=== PATIENT | male | born 1955 | race Caucasian/White ===

== ENCOUNTER → 2016-07-23 | Outpatient (CLI) | payer MEDICARE, MEDICAID ==
[~2016-07-23] MED LIST: AMLODIPINE BESY1 TAB PO; ANAPROX DS550 MG PO; ATARAX25 MG PO; ATENOLOL; ATIVAN1 MG PO; ATORVASTATIN CA40 M1 PO; AUGMENTIN 875 M1 TAB PO; B12,B-12,B 12500 MCG PO; BACTRIM DS 8001 TA1 PO; BENICAR40 MG PO; CELEXA40 MG PO; CLARITIN10 MG PO; CLINDAMYCIN HC300 MG PO; COMBIVENT1 ARO IH; COZAAR100 MG PO; CYCLOBENZAPRINE10 MG PO; DARVOCET N 1001 TAB PO; DAYPRO600 M1 PO; DELTASONE50 MG PO; DONNATAL1 TAB PO; EXALGO12 MG PO; FIORICET 325 MG1 TAB PO; FLEXERIL10 MG PO; HYDR12.5C PO; HYDR25T PO; HYDROCHLOROTHIA25 M1 PO; HYDROCODONE BIT1 T11 PO; HYDRODIURIL25 MG PO; IBU800 M1 PO; IBUPROFEN600 MG PO; K-DUR 20MEQ20 MEQ PO; K-Dur 20MEQ20 MEQ PO; KEFLEX500 MG PO; KLOR-CON 1010 MEQ PO; LIDODERM 5% PATC1 EA T; LIPITOR10 MG PO; LISINOPRIL HCTZ1 TA1 PO; LISINOPRIL/HCTZ1 TA2 PO; LOPRESSOR25 MG PO; LOPRESSOR50 MG PO; LOSARTAN POTAS100 M1 PO; LOSARTAN POTASS1 TA2 PO; MEDROL DOSEPAK4 MG PO; MORPHINE SULFAT30 M7 PO; MOTRIN800 MG; MOTRIN800 MG PO; MS CONTIN30 MG PO; Motrin,Rufen800 MG PO; NAPROSYN500 MG PO; NEURONTIN300 MG PO; NORCO 325 MG-51 TAB PO; NORFLEX100 MG PO; NORVASC10 MG PO; OMNICEF125 MG/5 M PO; OMNICEF250 MG/5 M PO; OXYCODONE HCL5 MG PO; PEPCID20 MG PO; PERCOCET 325 MG1 TA7 PO; POTASSIUM CHLO20 ME4 PO; POTASSIUM20 MEQ PO; PREDNISONE20 MG PO; PROVENTIL0.09 MG/AC IH; ROBAXIN750 MG PO; ROXICET 325 MG/55 ML PO; ROXICET ORAL SOL5 ML PO; ROXICET PO; SEPTRA DS 800 M1 TAB PO; TESSALON PERLE100 M1 PO; TOPROL XL100 MG PO; TRAMADOL HCL50 MG PO; TYLENOL W/CODEI1 TA2 PO; ULTRAM50 MG PO; VIBRAMYCIN100 MG PO; VICODIN 5/500 505 MG PO; VICODIN 500 MG-1 TAB PO; VICODIN ES 7501 TAB PO; Vicodin 5/500 505 MG PO; ZITHROMAX Z PA250 MG PO; ZOCOR PO; ZOCOR10 MG PO; ZOCOR20 MG PO; ZOCOR5 MG PO
[2016-07-23 14:21] LABS: BUN 15 mg/dl (7-24); CARBON DIOXIDE 33 mmol/L (21-32); CHLORIDE 100 mmol/L (98-107); EST GLOM FILT AFRICAN AMERICAN > 60 ml/min; GLUCOSE 135 mg/dL (65-99); POTASSIUM 2.7 mmol/L (3.5-5.1); SODIUM 140 mmol/L (136-145)
== END | disposition home or self-care (01) ==
LOC: LAB 13:36
PROVIDERS: Internal Medicine
DX: E87.6 Hypokalemia (principal)

== ENCOUNTER 2017-02-07 02:12 | Inpatient (IN) | payer MEDICARE, MEDICAID ==
[~2017-02-07] VITALS: Ht 180.3 cm; Wt 127.5 kg
[2017-02-07 02:18] VITALS: BP 131/72
[2017-02-07 03:16] VITALS: BP 134/92
[2017-02-07 04:00] VITALS: BP 145/95
[2017-02-07 05:55] LABS: BUN 10 mg/dl (7-24); CARBON DIOXIDE 29 mmol/L (21-32); CHLORIDE 104 mmol/L (98-107); CHOLESTEROL 199 mg/dL (<200); EST GLOM FILT AFRICAN AMERICAN > 60 ml/min; FREE T4 1.24 ng/dl (0.76-1.46); GLUCOSE 133 mg/dL (65-99); HDL CHOLESTEROL 28 mg/dl (40-60); LDL CHOLESTEROL 132 mg/dL (9-159); POTASSIUM 3.8 mmol/L (3.5-5.1); SODIUM 139 mmol/L (136-145); TRIGLYCERIDES 194 mg/dl (<150); VLDL CHOLESTEROL 39 mg/dL (6-40)
[2017-02-07 06:01] LABS: THYROID STIM HORMONE (HS) 0.404 uIU/ml (0.358-4.75)
[2017-02-07 06:03] LABS: BASO % 0.2 % (0.0-1.0); EOS # 0.1 10*3/uL (0.0-0.4); EOS % 0.6 % (1.0-4.0); HEMATOCRIT 47.9 % (42.0-52.0); HEMOGLOBIN 16.1 g/dl (14.0-18.0); LYMPH # 0.7 10*3/uL (1.3-4.4); LYMPH % 8.6 % (27.0-41.0); MEAN CELL VOLUME 90.4 fl (80.0-94.0); MEAN CORPUSCULAR HGB 30.4 pg (27.0-31.0); MEAN CORPUSCULAR HGB CONC 33.6 g/dl (33.0-37.0); MEAN PLATELET VOLUME 9.8 fl (9.6-12.3); MONO # 0.4 10*3/uL (0.1-1.0); MONO % 4.1 % (3.0-9.0); NEUT # 7.5 10*3/uL (2.3-7.9); NEUT % 86.2 % (47.0-73.0); PLATELET COUNT AUTOMATED 186 10*3/uL (130-400); RED CELL DISTRI WIDTH 12.7 % (0-14.5); WHITE BLOOD COUNT 8.6 10*3/uL (4.8-10.8)
[2017-02-07 06:39] LABS: HEMOGLOBIN A1c 5.7 % (4.8-5.6)
[2017-02-07 08:00] VITALS: BP 137/77
[2017-02-07] MEDS ORDERED: VICO10300 PO (10:08)
== END 2017-02-07 12:01 | disposition home or self-care (01) | DRG 916 ==
LOC: ED 02:12 → EDHOLD 03:36 → ICCU 03:48
PROVIDERS: Family Medicine
DX: T78.3XXA Angioneurotic edema, initial encounter (principal); I10 Essential (primary) hypertension; E66.09 Other obesity due to excess calories; M15.0 Primary generalized (osteo)arthritis; Z96.651 Presence of right artificial knee joint; F41.9 Anxiety disorder, unspecified; T50.905A Adverse effect of unspecified drugs, medicaments and biological substances, initial encounter; Z88.6 Allergy status to analgesic agent; Z79.899 Other long term (current) drug therapy; Z89.112 Acquired absence of left hand; Z83.3 Family history of diabetes mellitus; Z82.49 Family history of ischemic heart disease and other diseases of the circulatory system; Z80.9 Family history of malignant neoplasm, unspecified; Z88.8 Allergy status to other drugs, medicaments and biological substances; Z68.39 Body mass index [BMI] 39.0-39.9, adult; Y92.89 Other specified places as the place of occurrence of the external cause

== ENCOUNTER 2017-03-09 07:48 | Emergency (ER) | payer MEDICARE, MEDICAID ==
[~2017-03-09] VITALS: Ht 180.3 cm; Wt 124.7 kg
[~2017-03-09 07:48] MED LIST changes: +VICO10300 PO
[2017-03-09] MEDS ORDERED: DELTASONE20 M1 PO (09:33)
[2017-03-09] MEDS ORDERED: CYCLOBENZAPRINE10 MG PO (09:33)
== END 2017-03-09 09:50 | disposition home or self-care (01) ==
LOC: ED 07:48
DX: S16.1XXA Strain of muscle, fascia and tendon at neck level, initial encounter (principal); M13.88 Other specified arthritis, other site; M48.02 Spinal stenosis, cervical region; Z88.8 Allergy status to other drugs, medicaments and biological substances; Z88.6 Allergy status to analgesic agent; Z79.899 Other long term (current) drug therapy; M19.90 Unspecified osteoarthritis, unspecified site; X58.XXXA Exposure to other specified factors, initial encounter; Y93.89 Activity, other specified; Y99.8 Other external cause status; Y92.89 Other specified places as the place of occurrence of the external cause

== ENCOUNTER 2017-05-10 08:03 | Emergency (ER) | payer MEDICARE, MEDICAID ==
[~2017-05-10] VITALS: Ht 154.9 cm; Wt 129.7 kg
[~2017-05-10 08:03] MED LIST changes: +DELTASONE20 M1 PO
[2017-05-10 08:37] LABS: BASO % 0.4 % (0.0-1.0); EOS # 0.5 10*3/uL (0.0-0.4); EOS % 6.4 % (1.0-4.0); HEMOGLOBIN 16.5 g/dl (14.0-18.0); LYMPH # 1.3 10*3/uL (1.3-4.4); LYMPH % 18.8 % (27.0-41.0); MEAN CORPUSCULAR HGB 30.9 pg (27.0-31.0); MEAN CORPUSCULAR HGB CONC 35.1 g/dl (33.0-37.0); MEAN PLATELET VOLUME 9.3 fl (9.6-12.3); MONO # 0.6 10*3/uL (0.1-1.0); MONO % 8.1 % (3.0-9.0); NEUT # 4.7 10*3/uL (2.3-7.9); PLATELET COUNT AUTOMATED 176 10*3/uL (130-400); RED BLOOD COUNT 5.34 10*6/uL (4.50-5.90); RED CELL DISTRI WIDTH 12.3 % (0-14.5); WHITE BLOOD COUNT 7.1 10*3/uL (4.8-10.8)
[2017-05-10 08:52] LABS: ALBUMIN 3.6 gm/dl (3.1-4.5); ALKALINE PHOSPHATASE 86 U/L (45-117); BUN 7 mg/dl (7-24); CHLORIDE 103 mmol/L (98-107); CREATININE 0.98 mg/dL (0.70-1.30); POTASSIUM 3.3 mmol/L (3.5-5.1); SGOT/AST 25 IU/L (3-35); SGPT/ALT 42 U/L (12-78); SODIUM 138 mmol/L (136-145); TOTAL PROTEIN 7.6 gm/dL (6.4-8.2)
[2017-05-10] MEDS ORDERED: CLONIDINE HCL0.1 MG PO (09:55)
[2017-05-10] MEDS ORDERED: VIBRAMYCIN100 MG PO (09:55)
[2017-05-10] MEDS ORDERED: DIPHENHYDRAMINE50 M1 PO (09:58)
== END 2017-05-10 10:29 | disposition home or self-care (01) ==
LOC: ED 08:03
PROVIDERS: Emergency Medicine
DX: J40 Bronchitis, not specified as acute or chronic (principal); I10 Essential (primary) hypertension; M19.90 Unspecified osteoarthritis, unspecified site; F41.9 Anxiety disorder, unspecified; Z88.8 Allergy status to other drugs, medicaments and biological substances; Z79.899 Other long term (current) drug therapy; Z96.651 Presence of right artificial knee joint; Z98.890 Other specified postprocedural states

== ENCOUNTER → 2017-05-15 | Outpatient (CLI) | payer MEDICARE, MEDICAID ==
[~2017-05-15] MED LIST changes: +CLONIDINE HCL0.1 MG PO; +DIPHENHYDRAMINE50 M1 PO
== END | disposition home or self-care (01) ==
LOC: LAB 07:21
DX: E87.6 Hypokalemia (principal)

== ENCOUNTER → 2017-06-03 | Outpatient (CLI) | payer MEDICARE, MEDICAID ==
--- NOTE | 2017-06-03 10:30 | NUR ---
INFORMED CONSENT OBTAINED FOR LEXISCAN NUCLEAR STRESS TEST WITH DR. JOHNSON. RESTING EKG NSR WITH A RESTING HR OF 69 WITH BP OF 182/110. LUNG CLEAR WITH SPO2 OF 97% ON ROOM AIR. PT COMPLETED A 1:00 LEXISCAN PROTOCOL RECEIVING LEXISCAN 0.4 MG IV OVER 10 SECONDS. HAD NO CHEST PAIN BUT DID C/O NAUSEA THAT WAS RELIEVED IN RECOVERY. DEVELOPED T WAVE INVERSIONS IN LEADS II,III, AND AVF. HAD A PEAK HR OF 80 WITH BP OF 144/92. LAST RECOVERY HR OF 77 WITH BP OF 172/110. AWAITING SCANNING IN STABLE CONDITION.
== END ==
LOC: CARD 03:30
DX: R94.31 Abnormal electrocardiogram [ECG] [EKG] (principal)

== ENCOUNTER 2017-07-08 08:35 | Emergency (ER) | payer MEDICARE, MEDICAID ==
[~2017-07-08] VITALS: Ht 180.3 cm; Wt 127.0 kg
[2017-07-08] MEDS ORDERED: NORVASC10 MG PO (08:43)
== END 2017-07-08 11:15 | disposition home or self-care (01) ==
LOC: ED 08:35
DX: S63.92XA Sprain of unspecified part of left wrist and hand, initial encounter (principal); Z98.890 Other specified postprocedural states; Z96.651 Presence of right artificial knee joint; Z79.899 Other long term (current) drug therapy; Z88.8 Allergy status to other drugs, medicaments and biological substances; Z88.5 Allergy status to narcotic agent; Z88.6 Allergy status to analgesic agent; X50.1XXA Overexertion from prolonged static or awkward postures, initial encounter; Y93.89 Activity, other specified; Y92.89 Other specified places as the place of occurrence of the external cause; Y99.9 Unspecified external cause status

== ENCOUNTER → 2017-08-24 | Outpatient (CLI) | payer MEDICARE, MEDICAID | END | disposition home or self-care (01) | LOC: CT 12:46 | DX: M25.531 Pain in right wrist (principal); M25.431 Effusion, right wrist; Z98.1 Arthrodesis status ==

== ENCOUNTER 2017-08-30 11:18 | Emergency (ER) | payer MEDICARE, MEDICAID ==
[~2017-08-30] VITALS: Ht 180.3 cm; Wt 128.8 kg
[2017-08-30] MEDS ORDERED: NAPROSYN500 MG PO (14:10)
== END 2017-08-30 14:10 | disposition home or self-care (01) ==
LOC: ED 11:18
DX: M25.552 Pain in left hip (principal); F41.9 Anxiety disorder, unspecified; I10 Essential (primary) hypertension; Z90.89 Acquired absence of other organs; Z88.8 Allergy status to other drugs, medicaments and biological substances; Z88.5 Allergy status to narcotic agent; Z79.899 Other long term (current) drug therapy; Z96.651 Presence of right artificial knee joint

== ENCOUNTER → 2017-09-24 | Outpatient (CLI) | payer MEDICARE, MEDICAID | END | disposition home or self-care (01) | LOC: MRI 09-14 09:00 | DX: M16.12 Unilateral primary osteoarthritis, left hip (principal); M70.72 Other bursitis of hip, left hip; Z91.81 History of falling ==

== ENCOUNTER 2018-06-15 20:37 | Emergency (ER) | payer MEDICARE, MEDICAID ==
[~2018-06-15] VITALS: Ht 180.3 cm; Wt 117.9 kg
[~2018-06-15 20:37] MED LIST changes: +LYRICA75 M1 PO
== END 2018-06-15 22:50 | disposition home or self-care (01) ==
LOC: ED 20:37
DX: M25.521 Pain in right elbow (principal); Z79.899 Other long term (current) drug therapy; Z88.6 Allergy status to analgesic agent; Z88.8 Allergy status to other drugs, medicaments and biological substances

== ENCOUNTER → 2018-07-08 | Outpatient (CLI) | payer MEDICARE, MEDICAID ==
[~2018-07-08] MED LIST changes: +CEPHALEXIN500 M1 PO; +SEPTDS PO
[2018-07-08 15:18] LABS: BUN 9 mg/dl (7-24); CHLORIDE 103 mmol/L (98-107); CREATININE 0.82 mg/dL (0.70-1.30); SODIUM 142 mmol/L (136-145)
[2018-07-08 15:29] LABS: FREE T4 1.01 ng/dl (0.76-1.46); THYROID STIM HORMONE (HS) 0.667 uIU/ml (0.358-4.75)
== END | disposition home or self-care (01) ==
PROVIDERS: Internal Medicine
DX: I10 Essential (primary) hypertension (principal)

== ENCOUNTER → 2018-07-28 | Outpatient (CLI) | payer MEDICARE, MEDICAID ==
[~2018-07-28] MED LIST changes: -CEPHALEXIN500 M1 PO; -SEPTDS PO
== END | disposition home or self-care (01) ==
LOC: US 14:13
DX: I65.23 Occlusion and stenosis of bilateral carotid arteries (principal)

== ENCOUNTER 2019-01-08 14:41 | Emergency (ER) | payer MEDICARE, MEDICAID ==
[~2019-01-08] VITALS: Ht 180.3 cm; Wt 113.4 kg
[2019-01-08 15:19] LABS: BASO % 0.4 % (0.0-1.0); EOS # 0.2 10*3/uL (0.0-0.4); EOS % 1.9 % (1.0-4.0); HEMATOCRIT 45.4 % (42.0-52.0); HEMOGLOBIN 15.4 g/dl (14.0-18.0); LYMPH # 1.6 10*3/uL (1.3-4.4); MEAN CELL VOLUME 91.2 fl (80.0-94.0); MEAN CORPUSCULAR HGB 30.9 pg (27.0-31.0); MEAN CORPUSCULAR HGB CONC 33.9 g/dl (33.0-37.0); MEAN PLATELET VOLUME 9.7 fl (9.6-12.3); MONO # 0.7 10*3/uL (0.1-1.0); MONO % 9.1 % (3.0-9.0); NEUT # 5.5 10*3/uL (2.3-7.9); NEUT % 68.5 % (47.0-73.0); PLATELET COUNT AUTOMATED 173 10*3/uL (130-400); RED BLOOD COUNT 4.98 10*6/uL (4.50-5.90); RED CELL DISTRI WIDTH 12.5 % (0-14.5)
[2019-01-08 15:31] LABS: ACT PARTIAL THROMBO TIME 24.6 SECONDS (20.0-32.1)
[2019-01-08 15:32] LABS: ALBUMIN 3.3 gm/dl (3.1-4.5); ALKALINE PHOSPHATASE 66 U/L (45-117); BUN 13 mg/dl (7-24); CHLORIDE 106 mmol/L (98-107); POTASSIUM 3.3 mmol/L (3.5-5.1); SGOT/AST 12 IU/L (3-35); SGPT/ALT 20 U/L (12-78); SODIUM 142 mmol/L (136-145); TOTAL PROTEIN 6.7 gm/dL (6.4-8.2)
== END 2019-01-08 16:53 | disposition home or self-care (01) ==
LOC: ED 14:41
PROVIDERS: Nurse Practitioner Family
DX: L50.9 Urticaria, unspecified (principal); M96.830 Postprocedural hemorrhage of a musculoskeletal structure following a musculoskeletal system procedure; M25.521 Pain in right elbow; R53.1 Weakness; R11.0 Nausea; I10 Essential (primary) hypertension; E66.9 Obesity, unspecified; M19.90 Unspecified osteoarthritis, unspecified site; R79.1 Abnormal coagulation profile; Z48.01 Encounter for change or removal of surgical wound dressing; Z88.8 Allergy status to other drugs, medicaments and biological substances; Z88.6 Allergy status to analgesic agent; Z79.899 Other long term (current) drug therapy; Z98.890 Other specified postprocedural states

== ENCOUNTER 2019-01-28 18:27 | Emergency (ER) | payer MEDICARE, MEDICAID ==
[~2019-01-28] VITALS: Ht 180.3 cm; Wt 119.7 kg
--- NOTE | ~2019-01-28 | EKG ---
[place], [place] ELECTROCARDIOGRAM REPORT NAME: LUCY AHUJA UNIT #: [id number] ROOM: DOCTOR: EPIPHANY DRAFT REPORT BIRTHDATE: [birth year] [facility] Test Date: 2019-01-28 Test Time: 20:13:38 Pat Name: LUCY AHUJA Department: Room: Gender: Bilingual Office Assistant: : 1955 Requested By: LILI MAHMOOD DNP Order Number: [id number] Reading MD: Dawn Mckee Measurements Intervals [place] Rate: 81 P: -18 ND: 228 QRS: -28 QRSD: 106 T: QT: 443 QTc: 515 Interpretive Statements Sinus rhythm Prolonged ND interval Abnormal R-wave progression, early transition LVH with secondary repolarization abnormality Prolonged QT interval Electronically Signed On 01-30-2019 8:57:22 PDT by Dawn Mckee CM:EKGRPT:ELECTROCARDIOGRAM REPORT [id number] LILI MAHMOOD DNP EPIPHANY DRAFT REPORT LILI MAHMOOD DNP
[2019-01-28 19:34] LABS: BASO % 0.2 % (0.0-1.0); EOS # 0.1 10*3/uL (0.0-0.4); EOS % 0.7 % (1.0-4.0); HEMATOCRIT 42.6 % (42.0-52.0); HEMOGLOBIN 14.7 g/dl (14.0-18.0); LYMPH # 1.8 10*3/uL (1.3-4.4); MEAN CELL VOLUME 90.6 fl (80.0-94.0); MEAN CORPUSCULAR HGB 31.3 pg (27.0-31.0); MEAN CORPUSCULAR HGB CONC 34.5 g/dl (33.0-37.0); MEAN PLATELET VOLUME 9.9 fl (9.6-12.3); MONO # 0.7 10*3/uL (0.1-1.0); MONO % 8.6 % (3.0-9.0); NEUT # 5.8 10*3/uL (2.3-7.9); NEUT % 69.3 % (47.0-73.0); PLATELET COUNT AUTOMATED 175 10*3/uL (130-400); RED CELL DISTRI WIDTH 12.5 % (0-14.5); WHITE BLOOD COUNT 8.4 10*3/uL (4.8-10.8)
[2019-01-28 19:52] LABS: ALBUMIN 3.4 gm/dl (3.1-4.5); ALKALINE PHOSPHATASE 82 U/L (45-117); BUN 9 mg/dl (7-24); CHLORIDE 105 mmol/L (98-107); CREATININE 0.92 mg/dL (0.70-1.30); POTASSIUM 2.8 mmol/L (3.5-5.1); SGOT/AST 10 IU/L (3-35); SGPT/ALT 12 U/L (12-78); SODIUM 137 mmol/L (136-145); TOTAL PROTEIN 6.7 gm/dL (6.4-8.2)
[2019-01-28] MEDS ORDERED: CEPHALEXIN500 M1 PO (21:33)
[2019-01-28] MEDS ORDERED: SEPTDS PO (21:33)
== END 2019-01-28 21:40 | disposition home or self-care (01) ==
LOC: ED 18:27
PROVIDERS: Nurse Practitioner Family
DX: L03.113 Cellulitis of right upper limb (principal); R11.0 Nausea; I10 Essential (primary) hypertension; E78.5 Hyperlipidemia, unspecified; Z89.112 Acquired absence of left hand; Z88.6 Allergy status to analgesic agent; Z88.8 Allergy status to other drugs, medicaments and biological substances; Z79.899 Other long term (current) drug therapy

== ENCOUNTER 2019-05-20 16:54 | Emergency (ER) | payer OTHER, MEDICAID ==
[~2019-05-20] VITALS: Ht 180.3 cm; Wt 113.4 kg
[~2019-05-20 16:54] MED LIST changes: +CEPHALEXIN500 M1 PO; +SEPTDS PO
== END 2019-05-20 19:18 | disposition home or self-care (01) ==
LOC: ED 16:54
DX: R60.0 Localized edema (principal); M25.561 Pain in right knee; M19.90 Unspecified osteoarthritis, unspecified site; E66.9 Obesity, unspecified; I10 Essential (primary) hypertension; Z88.8 Allergy status to other drugs, medicaments and biological substances; Z88.6 Allergy status to analgesic agent; Z79.899 Other long term (current) drug therapy; W19.XXXA Unspecified fall, initial encounter; Y93.89 Activity, other specified; Y92.89 Other specified places as the place of occurrence of the external cause; Y99.8 Other external cause status

== ENCOUNTER 2019-06-14 10:46 | Emergency (ER) | payer OTHER, MEDICAID ==
[~2019-06-14] VITALS: Wt 115.2 kg
--- NOTE | ~2019-06-14 | EKG ---
[place], [place] ELECTROCARDIOGRAM REPORT NAME: LUCY AHUJA UNIT #: [id number] ROOM: DOCTOR: NAZ DRAFT REPORT BIRTHDATE: [birth year] [facility] Test Date: 2019-06-14 Test Time: 10:55:50 Pat Name: LUCY AHUJA Department: Room: Gender: Time Study Observer: : 1955 Requested By: ALVERTO GOODEN Order Number: [id number] Reading MD: Measurements Intervals [place] Rate: 79 P: 14 MD: 206 QRS: -25 QRSD: 111 T: QT: 595 QTc: 683 Interpretive Statements Sinus rhythm Left atrial enlargement Abnormal R-wave progression, early transition LVH with IVCD and secondary repol abnrm Prolonged QT interval Compared to ECG 01/28/2019 20:13:38 Atrial abnormality now present Intraventricular conduction delay now present First degree AV block no longer present CM:EKGRPT:ELECTROCARDIOGRAM REPORT [id number] ALVERTO CHILDS DRAFT REPORT ALVERTO GOODEN MD
[2019-06-14 11:10] LABS: BASO % 0.7 % (0.0-1.0); EOS # 0.1 10*3/uL (0.0-0.4); EOS % 1.9 % (1.0-4.0); HEMATOCRIT 47.4 % (42.0-52.0); HEMOGLOBIN 16.4 g/dl (14.0-18.0); LYMPH % 17.3 % (27.0-41.0); MEAN CELL VOLUME 90.6 fl (80.0-94.0); MEAN CORPUSCULAR HGB 31.4 pg (27.0-31.0); MEAN CORPUSCULAR HGB CONC 34.6 g/dl (33.0-37.0); MEAN PLATELET VOLUME 9.5 fl (9.6-12.3); MONO # 0.4 10*3/uL (0.1-1.0); MONO % 6.9 % (3.0-9.0); NEUT # 4.3 10*3/uL (2.3-7.9); NEUT % 72.9 % (47.0-73.0); PLATELET COUNT AUTOMATED 165 10*3/uL (130-400); RED BLOOD COUNT 5.23 10*6/uL (4.50-5.90); RED CELL DISTRI WIDTH 12.4 % (0-14.5); WHITE BLOOD COUNT 5.9 10*3/uL (4.8-10.8)
[2019-06-14 11:20] LABS: ACT PARTIAL THROMBO TIME 24.3 SECONDS (20.0-32.1)
[2019-06-14 11:28] LABS: ETHYL ALCOHOL < 3.0 mg/dl (<3)
[2019-06-14 11:31] LABS: ALBUMIN 3.8 gm/dl (3.1-4.5); ALKALINE PHOSPHATASE 81 U/L (45-117); BUN 12 mg/dl (7-24); CHLORIDE 107 mmol/L (98-107); CREATININE 1.04 mg/dL (0.70-1.30); POTASSIUM 3.5 mmol/L (3.5-5.1); SGOT/AST 21 IU/L (3-35); SGPT/ALT 30 U/L (12-78); SODIUM 139 mmol/L (136-145); TOTAL PROTEIN 7.5 gm/dL (6.4-8.2)
[2019-06-14 11:33] LABS: TROPONIN I < 0.015 ng/ml (<0.045)
== END 2019-06-14 15:21 | disposition home or self-care (01) ==
LOC: ED 10:46
PROVIDERS: Emergency Medicine
DX: T58.91XA Toxic effect of carbon monoxide from unspecified source, accidental (unintentional), initial encounter (principal); R11.2 Nausea with vomiting, unspecified; R51 Headache; R79.1 Abnormal coagulation profile; I10 Essential (primary) hypertension; M19.90 Unspecified osteoarthritis, unspecified site; E66.9 Obesity, unspecified; Z88.8 Allergy status to other drugs, medicaments and biological substances; Z88.6 Allergy status to analgesic agent; Z79.899 Other long term (current) drug therapy; Y92.89 Other specified places as the place of occurrence of the external cause

== ENCOUNTER 2019-08-01 13:14 | Emergency (ER) | payer OTHER, MEDICAID ==
[~2019-08-01] VITALS: Ht 180.3 cm; Wt 115.7 kg
== END 2019-08-01 14:00 | disposition home or self-care (01) ==
LOC: ED 13:14
DX: S46.301A Unspecified injury of muscle, fascia and tendon of triceps, right arm, initial encounter (principal); S29.001A Unspecified injury of muscle and tendon of front wall of thorax, initial encounter; M25.521 Pain in right elbow; I10 Essential (primary) hypertension; M19.90 Unspecified osteoarthritis, unspecified site; E78.5 Hyperlipidemia, unspecified; Z88.6 Allergy status to analgesic agent; Z88.8 Allergy status to other drugs, medicaments and biological substances; Z79.899 Other long term (current) drug therapy; X58.XXXA Exposure to other specified factors, initial encounter; Y93.89 Activity, other specified; Y92.89 Other specified places as the place of occurrence of the external cause; Y99.8 Other external cause status

== ENCOUNTER 2020-02-20 22:49 | Emergency (ER) | payer OTHER, MEDICAID ==
[~2020-02-20] VITALS: Ht 180.3 cm; Wt 120.2 kg
[2020-02-21] MEDS ORDERED: ULTRAM50 MG PO (02:01)
== END 2020-02-21 02:21 | disposition home or self-care (01) ==
LOC: ED 22:49
DX: S42.92XA Fracture of left shoulder girdle, part unspecified, initial encounter for closed fracture (principal); S80.12XA Contusion of left lower leg, initial encounter; S80.812A Abrasion, left lower leg, initial encounter; Z88.8 Allergy status to other drugs, medicaments and biological substances; Z88.6 Allergy status to analgesic agent; Z79.899 Other long term (current) drug therapy; W01.0XXA Fall on same level from slipping, tripping and stumbling without subsequent striking against object, initial encounter; Y93.89 Activity, other specified; Y92.89 Other specified places as the place of occurrence of the external cause; Y99.8 Other external cause status

== ENCOUNTER 2020-02-22 19:33 | Inpatient (IN) | payer OTHER, MEDICAID ==
[~2020-02-22] VITALS: Ht 180.3 cm; Wt 126.6 kg
[2020-02-22 19:37] VITALS: BP 137/77
--- NOTE | 2020-02-22 21:38 | NUR ---
THE PATIENT IS WEARING A SLING TO THE LEFT ARM FROM A LT [employer] FX DX YESTERDAY.
[2020-02-22 22:20] VITALS: BP 152/82
--- NOTE | 2020-02-22 22:20 | NUR ---
Time: 2219 A 64 year old male admitted to 5E under services of DR. ALEX ANDERSEN,JAGDEEP. Pt. arrived via wheel chair from ER. Chief complaint: had injury 02/21/20 and fracture RCI, SHOULDER FX. WAS HER IN ER LAST NIGHT AND THEN CAME BACK TODAY. XU DOMINGO
--- NOTE | 2020-02-22 22:34 | NUR ---
DR. ALVARADO WAS HERE ON UNIT AND SAW PATIENT ORDER RECEIVED.
--- NOTE | 2020-02-22 23:30 | NUR ---
IV IN RIGHT AC EDEMA. Hep Lock discontinued. Site symptomatic. Pressure applied. Sterile dressing applied. XU DOMINGO IV started right wrist with #22 angiocath after 1st attempts. The IV site was prepped with Chloraprep. Heparin lock attached. Procedure performed according to [facility] policy & procedure. XU DOMINGO
--- NOTE | 2020-02-22 23:40 | NUR ---
DILAUDID GIVEN PER ORDER FOR PAIN AND BENADRYL TO HELP PREVENT ALLERGIC REACTION. PAIN RATED BEYOND 10 ON 0-10 SCALE.
[2020-02-22 23:57] LABS: BASO % 0.4 % (0.0-1.0); EOS # 0.2 10*3/uL (0.0-0.4); EOS % 2.3 % (1.0-4.0); HEMATOCRIT 44.7 % (42.0-52.0); LYMPH # 1.4 10*3/uL (1.3-4.4); LYMPH % 19.9 % (27.0-41.0); MEAN CELL VOLUME 91.2 fl (80.0-94.0); MEAN CORPUSCULAR HGB 30.6 pg (27.0-31.0); MEAN CORPUSCULAR HGB CONC 33.6 g/dl (33.0-37.0); MEAN PLATELET VOLUME 9.7 fl (9.6-12.3); MONO # 0.9 10*3/uL (0.1-1.0); NEUT # 4.7 10*3/uL (2.3-7.9); NEUT % 65.1 % (47.0-73.0); PLATELET COUNT AUTOMATED 158 10*3/uL (130-400); RED CELL DISTRI WIDTH 12.5 % (0-14.5); WHITE BLOOD COUNT 7.2 10*3/uL (4.8-10.8)
[2020-02-23] VITALS: BP 152/82
[2020-02-23 00:14] LABS: ALBUMIN 3.4 gm/dl (3.1-4.5); ALKALINE PHOSPHATASE 63 U/L (45-117); BUN 15 mg/dl (7-24); CHLORIDE 106 mmol/L (98-107); CREATININE 0.95 mg/dL (0.70-1.30); POTASSIUM 3.1 mmol/L (3.5-5.1); SGOT/AST 14 IU/L (3-35); SGPT/ALT 26 U/L (12-78); SODIUM 138 mmol/L (136-145); TOTAL PROTEIN 7.1 gm/dL (6.4-8.2)
[2020-02-23] MEDS ORDERED: LOSARTAN POTASS25 M1 PO (00:29)
--- NOTE | 2020-02-23 00:40 | NUR ---
DILAUDID AND BENADRYL EFFECTIVE FOR PAIN. PATIENT RESTING WELLS.
--- NOTE | 2020-02-23 04:32 | NUR ---
24 HR chart check completed.
--- NOTE | 2020-02-23 07:01 | NUR ---
CALLED AND SPOKE WITH DR. ALVARADO ABOUT PAIN MEDICATION. PATIENT REFUSED TO TAKE TYLENOL SAID "I'M NOT SURE IF I CAN TAKE THAT BUT I CAN TAKE IBUPROFEN" NOTIFIED DR. ALVARADO ABOUT THAT. ORDERS TO BE RECEIVED.
--- NOTE | 2020-02-23 07:39 | NUR ---
MOTRIN GIVEN PER ORDER FOR PAIN RIGHT SHOULDER AND LEFT ARM RATED "10" SEE MAR.
[2020-02-23 08:00] VITALS: BP 154/77
--- NOTE | 2020-02-23 08:30 | NUR ---
MOTRIN EFFECTIVE. PATIENT RATES PAIN A 4/10 AND TOLERABLE. PATIENT REPOSITIONED FOR COMFORT. PILLOWS PLACED UNDER ARMS AND ICE PACKS APPLIED.WILL CONTINUE TO MONITOR. CALL LIGHT WITHIN REACH.
--- NOTE | 2020-02-23 09:00 | NUR ---
Revenue Coordinator in to talk to patient. Patient states lives at home alone with his family checking in on him. There are 0 steps in the home. There are 2 outside steps. Physician: Dr. Aditya Anderson [facility]: [facility] Home health services: none Patient's level of ADLs: moderate assistance Patient has working utilities: yes DME: none Follow-up physician's appointment after d/c: he prefers to make his own follow up appt after discharge Does patient want to access PORTAL?: no Discharge plan discussed with patient. He lives at home alone with his family checking in on him. He is normally independent in his ADLs and ambulation. He fell and hit both shoulders, one on the truck and one on the engine block. He has limited ROM with his right shoulder and his unable to move his left arm. Discussed short term rehab and home health care services and he refuses. He states he doesn't want people in his home. Discussed discharge planning with Dr. Anderson. Dr. Anderson says patient will need assisted living. Informed CM is unable to place in assisted living as that is private pay. Discussed possibility of surgery and patient to be transferred to a higher level of care. Patient states he would be willing to do OP therapy if and when needed. Discharge plan undecided at this time. He states his ex-girlfriend can provide transportation on discharge. Awaiting Dr. Anderson to [facility]
[2020-02-23 12:00] VITALS: BP 174/99
[2020-02-23 16:00] VITALS: BP 167/82
--- NOTE | 2020-02-23 18:33 | NUR ---
DR. JOHNSON NOTIFIED THAT [facility] CANNOT ACCEPT THE PATIENT A MEDICAL CASE. NURSING DELINQUENCY PREVENTION OFFICER SPOKE TO ORTHOPEDIC SURGEON ROUTE INSPECTOR AND HE RECOMMENDED THAT PATIENT CAN BE DISCHARGED AND FOLLOW UP ON THURSDAY WITH DR. ROSAS. PATIENT IS UNABLE TO DO ADL'S INDEPENDENTLY AND HAS AN INADEQUATE SUPPORT SYSTEM AT HOME. PER DR. JOHNSON, PATIENT WILL REMAIN HOSPITALIZED AND HE WILL SEE HIM TOMORROW.
[2020-02-23 20:00] VITALS: BP 169/98
--- NOTE | 2020-02-23 20:15 | NUR ---
SPOKE WITH DR. ALVARADO ABOUT PATIENT HOME MEDS.
--- NOTE | 2020-02-23 22:15 | NUR ---
CALLED DR. ALVARADO ABOUT SOMETHING TO HELP PATIENT SLEEP AND PAIN MEDICATION. ORDER RECEIVED.
--- NOTE | 2020-02-23 23:02 | NUR ---
MOTRIN GIVEN PER ORDER FOR PAIN IN BOTH UPPER SHOULDERS RATED "10" AND BENADRYL TO HELP PATIENT SLEEP. SEE MAR. PILLOWS PLACED TO HELP SUPPORT ARMS/COMFORT MEASURE.
[2020-02-24] VITALS: BP 167/95
--- NOTE | 2020-02-24 | NUR ---
MOTRIN AND BENADRYL BOTH EFFECTIVE.
--- NOTE | 2020-02-24 04:00 | NUR ---
SLEEPING. RESP. EASY AND REG. NO ACUTE DISTRESS NOTED.
--- NOTE | 2020-02-24 04:16 | NUR ---
24 HR chart check completed.
--- NOTE | 2020-02-24 05:12 | NUR ---
UP TO BATHROOM WITH ASSISTANCE PATIENT UNABLE TO PERFORM ADL'S D/T INJURIES TO BOTH ARMS. PT. RETURN TO BED AND POSITIONED FOR COMFORT WITH PILLOW SUPPORTS AND SLING.
[2020-02-24 05:30] VITALS: BP 133/78
[2020-02-24 08:00] VITALS: BP 153/94
--- NOTE | 2020-02-24 09:00 | NUR ---
CARLOS in to see patient. He is currently on the phone with Dr. Castro' office in [place] for an OP orthopedics appt. The earliest the office would be able to get him in to be seen would be , March 01, at 1045 or in [place] on Thursday. Patient is concerned as he is not able to drive. He states "I can't even wipe my own butt." Awaiting Dr. Anderson to round. Discharge plan at this time undecided.
[2020-02-24 12:00] VITALS: BP 159/86
[2020-02-24 13:47] LABS: BASO % 0.7 % (0.0-1.0); EOS # 0.3 10*3/uL (0.0-0.4); EOS % 6.4 % (1.0-4.0); HEMATOCRIT 43.8 % (42.0-52.0); LYMPH % 21.6 % (27.0-41.0); MEAN CELL VOLUME 90.9 fl (80.0-94.0); MEAN CORPUSCULAR HGB 30.3 pg (27.0-31.0); MEAN CORPUSCULAR HGB CONC 33.3 g/dl (33.0-37.0); MEAN PLATELET VOLUME 10.2 fl (9.6-12.3); MONO # 0.4 10*3/uL (0.1-1.0); MONO % 8.7 % (3.0-9.0); NEUT # 2.8 10*3/uL (2.3-7.9); NEUT % 62.4 % (47.0-73.0); PLATELET COUNT AUTOMATED 163 10*3/uL (130-400); RED BLOOD COUNT 4.82 10*6/uL (4.50-5.90); RED CELL DISTRI WIDTH 12.1 % (0-14.5); WHITE BLOOD COUNT 4.5 10*3/uL (4.8-10.8)
[2020-02-24 13:58] LABS: BUN 18 mg/dl (7-24); CHLORIDE 108 mmol/L (98-107); CREATININE 0.91 mg/dL (0.70-1.30); POTASSIUM 3.5 mmol/L (3.5-5.1); SODIUM 140 mmol/L (136-145)
[2020-02-24 16:00] VITALS: BP 136/79
--- NOTE | 2020-02-24 17:15 | NUR ---
PATIENT STATES THAT TORODOL WAS EFFECTIVE. AND PATIENT WAS ABLE TO EAT DINNER AND MOVE EASIER.
--- NOTE | 2020-02-24 17:45 | NUR ---
DR. JOHNSON IN TO SEE PATIENT AND DISCUSS PATIENT CARE. ORDERS RECEIVED TO HAVE TORADOL FOR PAIN MANAGEMENT AND OTHER OPTIONS WILL BE ADDED IF PATIENT IS STILL IN PAIN. PLAN IS TO KEEP PATIENT UNTIL THURSDAY WHEN NEW ORTHOPEDIC DOCTOR STARTS AND WILL BE CONSULTED AT THAT TIME. PATIENT AGREES WITH THIS PLAN OF CARE.
--- NOTE | 2020-02-24 19:42 | NUR ---
24 HR chart check completed.
[2020-02-24 20:00] VITALS: BP 160/89
[2020-02-25] VITALS: BP 153/84
--- NOTE | 2020-02-25 00:38 | NUR ---
C/O PAIN LEFT AND RIGHT SHOULDER LEFT WORSE THAN RIGHT RATED "10+" TORADOL GIVEN PER ORDER FOR PAIN. RE-ADJUSTED PILLOWS FOR COMFORT.
--- NOTE | 2020-02-25 02:04 | NUR ---
CALLED DR. JOHNSON AND NOTIFIED HIM THAT PATIENT C/O "BAD HEADACHE AFTER TAKING TORADOL" RATED IT "10" "LIKE MIRGAINE BAD". ORDER RECEIVED FOR IBUPROFEN. PT. UP TO BATHROOM WITH ASSISTANCE AND BACK TO BED, POSITIONED FOR COMFORT.
--- NOTE | 2020-02-25 03:00 | NUR ---
PT C/O HEADACHE, RATES PAIN 5 ON PAIN SCALE 0-10. MEDICATED WITH MOTRIN PO PER ORDER, SEE EMAR. CALL LIGHT IN REACH.
--- NOTE | 2020-02-25 04:00 | NUR ---
MOTRIN EFFECTIVE FOR HEADACHE PAIN.
--- NOTE | 2020-02-25 05:05 | NUR ---
UP TO BATHROOM WITH ASSISTANCE VOIDED AND THEN BACK TO BED AND ADJUSTED PILLOWS FOR COMFORT.
[2020-02-25 08:00] VITALS: BP 164/96
[2020-02-25 12:00] VITALS: BP 132/89
[2020-02-25 16:00] VITALS: BP 132/83
[2020-02-25 20:00] VITALS: BP 156/94
--- NOTE | 2020-02-25 20:22 | NUR ---
1X SOLU MEDROL AND GIVEN PER BACK RASH; IV DILAUDID GIVEN PER REPORT OF PAIN. WILL MONITOR.
--- NOTE | 2020-02-25 21:00 | NUR ---
PATIENT STATES DILAUDID EFFECTIVE FOR PAIN. FLAT SHEET APPLIED UNDERNEATH SLING R/T REDNESS UNDER STRAP. PT STATES RELIEF.
[2020-02-26] VITALS: BP 157/80
[2020-02-26 08:00] VITALS: BP 150/98
--- NOTE | 2020-02-26 08:00 | NUR ---
IN TO ROOM, PATIENT AWAKE, ALERT AND ORIENTED SITTING UP IN BED. PT C/O SHOULDER PAIN, EDUCATION PROVIDED ON TIMING OF PRN MEDICATIONS. NO OTHER STATED COMPLAINTS. RESPIRATIONS ARE EASY AND REGULAR ON ROOM AIR. NO SOB OR DISTRESS NOTED. PT IS ABLE TO REPOSITION SELF IN BED AND IS ENCOURAGED TO DO SO. BED IN LOWEST LOCKED POSITION AND CALL LIGHT WITHIN REACH.
--- NOTE | 2020-02-26 10:00 | NUR ---
PT GAVE PA 6 DOLLARS AND A DEBIT CARD IN AN ENVELOPE TO TAKE TO ER TO GIVE TO A FRIEND NAMED WINTER.
--- NOTE | 2020-02-26 10:08 | NUR ---
PT COMPAINS OF LEFT SHOULDER PAIN RATED AT AN 8. PRN DILAUDID ADMINISTERED AT THIS TIME. WILL MONITOR FOR EFFECTIVENESS.
--- NOTE | 2020-02-26 11:08 | NUR ---
PT STATES DILAUDID WAS EFFECTIVE.
--- NOTE | 2020-02-26 11:30 | NUR ---
PT COMPLAIN OF LEFT SHOULDER PAIN RATED AT AN 8. PRN DILAUDID ADMINISTERED AT THIS TIME. WILL MONITOR FOR EFFECTIVENESS.
[2020-02-26 12:00] VITALS: BP 124/99
--- NOTE | 2020-02-26 15:53 | NUR ---
PT COMPLAINS OF SHOULDER PAIN RATED AT A 9. PRN DILAUDID ADMINISTERED AT THIS TIME. WILL MONITOR FOR EFFECTIVENESS.
[2020-02-26 16:00] VITALS: BP 126/87
[2020-02-26 20:00] VITALS: BP 149/89
--- NOTE | 2020-02-26 20:27 | NUR ---
1X VISTARIL GIVEN PER ORDER
--- NOTE | 2020-02-26 20:43 | NUR ---
PATIENT TEACHING PROVIDED AT THIS TIME R/T HUMERAL FRACTURE
--- NOTE | 2020-02-26 22:31 | NUR ---
PRN IV DILAUDID GIVEN PER PT C/O 04/14 PAIN TO LT SHOULDER & RESTORIL PER REQUEST FOR INSOMNIA
--- NOTE | 2020-02-26 23:30 | NUR ---
PRN MEDICATIONS EFFECTIVE; PT IS RESTING ON ROOM AIR, EASY REGULAR RESPIRATIONS
[2020-02-27] VITALS: BP 154/90
[2020-02-27 06:28] LABS: BASO % 0.4 % (0.0-1.0); EOS # 0.3 10*3/uL (0.0-0.4); EOS % 5.3 % (1.0-4.0); HEMATOCRIT 43.5 % (42.0-52.0); LYMPH # 1.6 10*3/uL (1.3-4.4); LYMPH % 30.8 % (27.0-41.0); MEAN CELL VOLUME 90.6 fl (80.0-94.0); MEAN CORPUSCULAR HGB 30.4 pg (27.0-31.0); MEAN CORPUSCULAR HGB CONC 33.6 g/dl (33.0-37.0); MEAN PLATELET VOLUME 9.6 fl (9.6-12.3); MONO # 0.5 10*3/uL (0.1-1.0); MONO % 8.5 % (3.0-9.0); NEUT # 2.9 10*3/uL (2.3-7.9); NEUT % 54.8 % (47.0-73.0); PLATELET COUNT AUTOMATED 194 10*3/uL (130-400); RED CELL DISTRI WIDTH 12.5 % (0-14.5); WHITE BLOOD COUNT 5.3 10*3/uL (4.8-10.8)
[2020-02-27 06:32] LABS: CREATININE 0.81 mg/dL (0.70-1.30)
[2020-02-27 08:00] VITALS: BP 153/88
--- NOTE | 2020-02-27 08:00 | NUR ---
PATIENT AWAKE, ALERT AND ORIENTED SITTING UP IN BED. PT C/O SHOULDER PAIN AT THIS TIME. NO OTHER STATED COMPLAINTS. RESPIRATIONS ARE EASY AND REGULAR. ROOM AIR. NO SOB NOTED. PT IS ABLE TO REPOSITION SELF IN BED AND IS ENCOURAGED TO DO SO. BED IN LOWEST LOCKED POSITION AND CALL LIGHT WITHIN REACH. WILL CONTINUE TO MONITOR.
--- NOTE | 2020-02-27 08:27 | NUR ---
PT COMPLAINS OF SHOULDER PAIN RATED AT A 9. PRN DILAUDID ADMINISTERED AT THIS TIME. WILL MONITOR FOR EFFECTIVENESS.
--- NOTE | 2020-02-27 08:48 | NUR ---
Spoke with Dr. Anderson regarding ortho consult. New orders received.
--- NOTE | 2020-02-27 09:27 | NUR ---
PT STATES DILAUDID WAS EFFECTIVE.
--- NOTE | 2020-02-27 09:30 | NUR ---
CM in to see patient. Discussed ortho consult. No new needs or request at this time. Discharge plan undecided at this time.
[2020-02-27 12:00] VITALS: BP 137/69
--- NOTE | 2020-02-27 14:02 | NUR ---
PT COMPLAINS OF SHOULDER PAIN RATED AT A 9. PRN DILAUDID ADMINISTERED. WILL MONITOR FOR EFFECTIVENESS.
[2020-02-27] MEDS ORDERED: ACETAMINOPHEN325 M2 PO (14:39)
[2020-02-27] MEDS ORDERED: PANTOPRAZOLE SO40 MG PO (14:39)
--- NOTE | 2020-02-27 15:00 | NUR ---
IN TO ROOM. PATIENT ASLEEP IN BED. PRN DILAUDID CONSIDERED EFFECTIVE. RESPIRATIONS ARE EASY AND REGULAR. NO SOB OR DISTRESS NOTED. BED IN LOWEST LOCKED POSITION AND CALL LIGHT WITHIN REACH. WILL CONTINUE TO MONITOR.
--- NOTE | 2020-02-27 15:51 | NUR ---
CM in to see patient. Informed Dr. Anderson stated patient could be discharged to home. Discussed short term rehab and home health care services and he declines. He states he doesn't want anyone in his house. He states his house is stocked with food and he can use his propane stove to cook on. He has solar panels and is unable to run a microwave. He has an appt with Dr. Castro, orthopedist, at [place] on . He wants to follow up with him for a second opinion. His ex-girlfriend will provide transportation on discharge today and to his doctor's appt on . He has a grabber at home that he is going to use to be able to wipe with.
--- NOTE | 2020-02-27 16:01 | NUR ---
Called to patient's room. He is requesting [facility]. He wants to make sure they can get him to his appt on . Will notify protective services social worker. He'll need a precert.
[2020-02-27] MEDS ORDERED: ASPIRIN LITE C325 MG PO (16:03)
--- NOTE | 2020-02-27 19:00 | NUR ---
ASSUMED CARE FOR THIS PT AT THIS TIME. PT C/O LT SHOULDER PAIN. PT TEACHING GIVEN ON PRN PAIN MED TIMES. BED ALARM ON W/CALL LIGHT IN REACH.
[2020-02-27 20:00] VITALS: BP 134/92
--- NOTE | 2020-02-27 20:03 | NUR ---
PT C/O SHARP PAIN TO LEFT SHOULDER 9/10 AND ITCHING TO BACK. RASH REMAINS TO UPPER BACK. PT MEDICATED W/DILAUDID IVP. LT ARM SLING INTACT. BED ALARM ON W/CALL LIGHT IN REACH.
--- NOTE | 2020-02-27 20:33 | NUR ---
DR. ALVARADO NOTIFIED OF PT'S RASH ON BACK AND PT COMPLAINING OF ITCHINESS. TO ORDER BENADRYL.
--- NOTE | 2020-02-27 21:00 | NUR ---
PT STATES DILAUDID EFFECTIVE FOR PAIN RELIEF.
[2020-02-28] VITALS: BP 157/88
--- NOTE | 2020-02-28 05:28 | NUR ---
PT MEDICATED W/DILAUDID FOR C/O LEFT SHOULDER PAIN 03/15. ICE PACK GIVEN TO PT AT THIS TIME WELL. SLING INTACT TO LEFT ARM. CALL LIGHT IN REACH W/BED ALARM ON.
[2020-02-28 08:00] VITALS: BP 174/80; BP 182/98
--- NOTE | 2020-02-28 08:04 | NUR ---
Patient requesting snf at [facility]; Faxed face sheet to check for out of network benefits.
--- NOTE | 2020-02-28 08:26 | NUR ---
PT RESTING IN BED. NO DISTRESS NOTED. WILL MONITOR
--- NOTE | 2020-02-28 08:31 | NUR ---
Occupational Therapy evaluation completed on five with full evaluation to follow. Recommend occupational therapy per plan of care and SNF upon discharge. Thank you for this referral. Malini Dempsey OTR/L
--- NOTE | 2020-02-28 09:00 | NUR ---
CM in to see patient. Discussed [facility] does not take patient's insurance and he doesn't have any out of network benefits. When provided with facilities that do take [place] [facility] he would rather go home ([facility], [facility]). Discussed home health care services and he declines. He states he doesn't want people in his home. Dr. Anderson notified. When medically stable he will be discharged to home. He states his ex-girlfriend will provide transportation on discharge. He states if he gets home and is unable to care for himself his ex-girlfriend will take him in. He states the only concern he has his wiping his butt. He said he has some items at home that he is going to figure out how to make something to assist him.
--- NOTE | 2020-02-28 09:45 | NUR ---
PHYSICAL THERAPY Physical Therapy evaluation completed on 5th floor with full evaluation to follow. Recommend physical therapy per plan of care and SNF upon discharge. Thank you for this referral. Pritesh Vidales SPT Krissy Rao PT
--- NOTE | 2020-02-28 11:50 | NUR ---
PHYSICAL THERAPY Per pt going home, unsure if to his or exgirlfriends home per pt CM told him that his choice for rehab was unavailbe due to insurance reasons. Pt states 2 steps into his trailor w no HR vs 20 steps into ex-girlfriends home with bilaterally but stairs are very narrow there is a landing partway could also go in the back 4 steps with HR on R but would have to amb through yard on an uphill grade, 1 STH STS from bed CGA x 1 and cues for safety trialed 4 steps at the bedside with stool 6-8 inch and using HR on hospital bed Min x 1 for balance/support Pt easily fatigued and easily SOB with activity. Spoke at length with regarding concerns for home as no HR to enter trailor and access to ex-girlfreinds is difficult with either 20 steps in front or having to ambulate through uneven terrain on an uphill grade as well as social dynamics CM in to speak with patient reg rehab and discussed pt having options of other rehab facilities, the rehab pt wanted to go had no beds available. Pt agreeable to have CM look into [facility] for rehab. At end of session pt returned to bed set up for lunch call kimball in reach and bed alarm on for safety. Cont per POC and cont to recomend SNF prior to home Krissy Rao PT
[2020-02-28 12:00] VITALS: BP 150/95
--- NOTE | 2020-02-28 12:01 | NUR ---
OT NOTE Patient was seen this AM for OT treatment to maximize independence and safety with adaptive equipment for ADL use. Patient was seen for 30 minutes of treatment. Upon arrival, patient was supine in bed with HOB elevated, alarm on for safety. and was agreeable to further OT treatment. Patient stated that he was going to be discharging home today due to his insurance not covering a SNF stay. Patient was requesting to don personal clothes since he would "be leaving in the next 2-3 hours." Patient performed bed mobility to his left with CGA while maintaining LUE NWB. Patient was provided with a visual and verbal demonstration on how to properly don underwear and pants with the metal lather. Patient stated he was "very self-sufficient" and donned B/L pants using a tailor/four-way technique with CGA to thread B/L LEs and Mod A to pull underwear and pants over his waist in stance. Patient very SOB and reported it was due to increased pain with activity. OTR provided further education on how using AE for EC/WS is a beneficial technique to reduce pain and increase efficiency for ADLs. Patient verbalized a fair understanding. Patient returned to seated and donned B/L shoes utilizing the shoe horn with supervision assist following verbal instructions for sequencing of task. Patient required Max A to tie his shoes. While seated, OTR, PT, and case management discussed with patient the feasibility of returning home and looking at different SNF facilities for rehab. Patient stated he would either return to his home alone with a 2 CARMEN or return to his ex-girlfriend's home with 20 CARMEN with B/L HRs in the front or a 4 CARMEN through the backdoor where he has to walk through the sideyard/grass. OTR then discussed if patient returned home about higher level ADLs including sponge bathing, simple meal preparation, and dressing. Patient then agreeable with CM to seeking other facilities for SNF placement. Patient performed mobility/steps in room with PT, see PT note. Prior to conclusion, patient was provided with a long handled sponge for when he returns home to maximize independence with bathing due to his limited RUE and LUE ROM. Patient verbalized a good understanding. Patient wanted to return supine to eat his meal. While seated, patient attempted to doff B/L socks and shoes using a tailor sit requiring Min A and increased SOB. Patient provided with a dressing stick and completed task with supervision following verbal instructions. Patient then stood with Min A and doffed underwear and jeans with Min A of pulling down over his L hip. While seated, patient used a tailor/four way sit to don hospital pants with Min A for standing and Mod A to frame pulley mortising machine operator waist. Patient returned supine in bed with CGA with HOB elevated, set-up with lunch, alarm on for safety. Patient very impulsive throughout however he demonstrated 100% compliance with LUE NWB. Patient would benefit from continued OT treatment to further address higher level ADLs with AE and education on compensatory techniques due to his LUE NWB and limited RUE ROM. Malini Dempsey, OTR/L
--- NOTE | 2020-02-28 12:18 | NUR ---
Called to patient's room by therapy to discuss short term rehab. Explained [facility] would not take his insurance and he has no out of network benefits. He could go to [facility], [facility], or [facility]. He doesn't want to go to [facility] because he doesn't want to go to [place]. He doesn't want to go to [facility] because he has a maribel in there now and he doesn't like it. Discussed [facility] and he states they are full. Explained a referral would need to be sent over and [facility] would review and accept. If he is accepted then an insurance precert would need to be started. He is agreeable. medical planner and Dr. Anderson notified.
--- NOTE | 2020-02-28 12:34 | NUR ---
Patient is now requesting a referral to [facility]. Contacted [facility] and faxed referral. waiting on review/acceptance/covid.
[2020-02-28 16:00] VITALS: BP 115/56; BP 150/92
[2020-02-28 17:30] VITALS: BP 148/80
--- NOTE | 2020-02-28 17:32 | NUR ---
PT REQUESTED AND GIVEN DILAUDID FOR C/O BILATERAL ARM PAIN . PT RATES PAIN 01/12 WILL MONITOR
--- NOTE | 2020-02-28 19:00 | NUR ---
ASSUMED CARE FOR THIS PT AT THIS TIME. PT SITTING IN RECLINER CHAIR. PT C/O LT SHOULDER PAIN 01/12. PT TEACHING GIVEN ON PRN DILAUDID TIMES. SLING INTACT TO LEFT ARM. LEFT ARM ECCHYMOTIC. RASH TO BACK DIMINISHED. CALL LIGHT IN REACH.
[2020-02-28 20:00] VITALS: BP 149/83
[2020-02-29] VITALS: BP 139/91
--- NOTE | 2020-02-29 00:50 | NUR ---
IV DILAUDID ADMINISTERED PER PRN ORDER FOR C/O PAIN IN BL SHOULDERS RATED 8/10. WILL MONITOR EFFECTIVENESS. CALL LIGHT IN REACH.
--- NOTE | 2020-02-29 01:50 | NUR ---
PRN DILAUDID EFFECTIVE FOR PAIN RELIEF. PT RESTING QUIETLY IN BED.
--- NOTE | 2020-02-29 07:34 | NUR ---
Patient has been accepted to [facility] and precert was started this morning 02/29/20. Waiting for auth and covid test results.
[2020-02-29 08:00] VITALS: BP 143/89
--- NOTE | 2020-02-29 08:07 | NUR ---
PT RSTING IN BED/ NO DISTRESS NOTED. WILL MONITOR
--- NOTE | 2020-02-29 09:00 | NUR ---
CM in to see patient. Discussed he has been accepted to [facility], waiting on auth and his COVID results. He verbalized an understanding. assortment planner/manager social services following.
--- NOTE | 2020-02-29 09:06 | NUR ---
OT NOTE Pt was seen this A.M. 1:1 for 25 minute OT session. Upon arrival pt was supine in bed. Pt identified by name and and had complaints of "20/10" L shoulder pain. Pt presented to therapy with collar/cuff sling to LUE which was properly donned. Pt was able to self recall NWB status to LUE and WBAT to RUE. Pt transferred supine to sit EOB with SBA. While sitting EOB pt donned socks with SBA while using compensatory technique of bringing his leg up knee level. Pt then donned tennis shoes with SBA and use of shoe horn, pt did require assist for tying his shoe laces. Educated pt on keeping shoes laced up prior to donning, pt verbalized understanding. Pt then donned gown with modA due to limited RUE ROM and LUE being unable to use. Simulated lower body bathing completed with use of long handled sponge. Sit to stand completed from bed level with SBA followed by functional mobility to the bathroom with SBA for safety. There pt voiced concerns about lower body tila dressing in regards to pants. Pt was educated on multiple compensatory techniques, pt was able to doff pants with SBA however required Bettina for donning of pants over his L hip due to limited RUE ROM. Functional mobility then completed back to the EOB for a seated rest break. While sitting EOB pt was provided with a handout and educated on different toileting aides available. While sitting EOB completed A/AAROM to RUE over all planes of motion for 1 X 10 to point of tolerance to increase and restore maximum functional use. Functional mobility completed to the recliner where he was left sitting upright with call light in hand and tray table in place. Continue with rec D/C plan to SNF. MANJINDER Siddiqi
--- NOTE | 2020-02-29 09:34 | NUR ---
PHYSICAL THERAPY TREATMENT TIME: OUT 08:45 AM 20 MINUTES PRESENTATION: Patient presented to therapy with report of L shoulder pain of 02/12. Patient has limited ROM in the R shoulder/UE NWB L UE WBAT R UE SUPINE IN BED HEAD OF BED ELEVATED AND BED ALARM OFF. Informed consent for treatment given. Identified by name and [employer] wristband. TRANSFERS: SUPINE TO SITTING ON EOB -SBA SIT ON EOB - SUPERVISION STS from EOB - CGA-SBA STS from commode- SBA TREATMENT: Assistive Device- Patient does not use Gait distance -429' x 1 with Close Supervision STEPS - ASCENDING AND DESCENDING X 10 STEPS with Supervision, No use of handrail CONCLUSION OF TREATMENT: Patient left sitting on EOB. Call light within reach CLAYTON SHERIDAN VOLUNTEER PATIENT REPRESENTATIVE
--- NOTE | 2020-02-29 11:51 | NUR ---
DR ARRIETA RESIDENT NOTIFIED OF CONSULT
[2020-02-29 12:00] VITALS: BP 142/97
[2020-02-29 16:00] VITALS: BP 147/96
--- NOTE | 2020-02-29 19:35 | NUR ---
RN CALLED TO PATIENT ROOM AT THIS TIME PATIENT IS REQUESTING TO HAVE HIS DOCTOR CALLED SO THAT HE CAN BE DISCHARGED TONIGHT. ASKED PATIENT WHY HE HAS CHANGED HIS MIND ON GOING TO [facility] AND HE STATED "THE THERAPY PEOPLE GAVE ME THESE TOOLS HERE AND I CAN DO THINGS FOR MYSELF NOW SO I DON'T NEED TO GO, PLUS I DON'T WANT TO GET COVID FROM SOMEONE THERE" WILL NOTIFY CASE MANAGEMENT AND PHYSICIAN IN THE AM OF PATIENT WISHES, HE DOES NOT HAVE A RIDE AT THIS TIME SO HE HAS AGREED TO STAY THE NIGHT.
[2020-02-29 20:00] VITALS: BP 150/96
--- NOTE | 2020-02-29 22:50 | NUR ---
24 HOUR CHART CHECK COMPLETE
[2020-03-01] VITALS: BP 159/98
--- NOTE | 2020-03-01 00:05 | NUR ---
PATIENT RESTING IN BED IN A POSITION OF COMFORT AT THIS TIME WATCHING TELEVISION. DENIES ANY PAIN OR DISTRESS AT THIS TIME. A&O X3, CALL LIGHT WITHIN REACH, WILL CONTINUE TO MONITOR.
--- NOTE | 2020-03-01 04:20 | NUR ---
PATIENT RESTING IN BED IN A POSITION OF COMFORT AT THIS TIME WITH EYES CLOSED. RESPIRATIONS EASY AND NON-LABORED AT THIS TIME. CALL LIGHT WITHIN REACH, WILL CONTINUE TO MONITOR.
--- NOTE | 2020-03-01 07:38 | NUR ---
Notified Dr. Anderson patient can be discharged to [facility] when medically stable. Dr. Mcfarlane will be rounding later today. Plan is to discharge.
--- NOTE | 2020-03-01 07:43 | NUR ---
PRECERT HAS BEEN OBTAINED. COVID RESULTS ARE RETURNED. PATIENT CAN ADMIT TO [facility] TODAY IF MEDICALLY STABLE. CARBIDE POWDER PROCESSOR IS AWARE.
[2020-03-01 08:00] VITALS: BP 151/89
--- NOTE | 2020-03-01 08:00 | NUR ---
Neurological: awake,alert,oriented Respiratory: diminished bilaterally Breath sounds: clear Cough: none Cardiovascular: no problem Gastrointestinal: soft Genito/Urinary: no problem Musculoskeketal: AMBULATORY OLE ANDREWS
--- NOTE | 2020-03-01 08:06 | NUR ---
CELL LEAD COMPLETED HENS.
--- NOTE | 2020-03-01 09:30 | NUR ---
CM in to see patient. Discussed his discharge to [facility] today. He wanted to know if the [facility] van would be able to transport. electrical maintenance worker notified. Awaiting Dr. Mcfarlane to round for discharge as precert has been obtained and COVID is negative.
--- NOTE | 2020-03-01 11:27 | NUR ---
OT NOTE Pt was seen this A.M. 1:1 for 20 minute OT session. Upon arrival pt was supine in bed. Pt identified by name and and had complaints of 8/10 L shoulder pain. Pt presented to therapy with collar/cuff sling properly donned. Pt transferred supine to sit EOB with supervision. While sitting EOB pt donned socks with supervision while bringing leg up to knee level. Sit to stand completed from bed level with SBA followed by functional mobility to the bathroom with SBA. There he transferred on/off standard commode with SBA, completed clothing management with Bettina while being able this session to teresita pants over L hip with use of the enrollment eligibility representative. Toilet hygiene completed with SBA while using toileting aide. Pt then stood sink side while washing his hands and face with SBA. Pt returned to the EOB where he transferred sit to supine with supervision. There he was left with call light in hand, tray table in place, and phone in reach. Continue with rec D/C plan to SNF. DAVID Siddiqi/Ann
[2020-03-01 12:00] VITALS: BP 119/67
[2020-03-01] MEDS ORDERED: DOXYCYCLINE100 MG PO (12:49)
[2020-03-01] MEDS ORDERED: BENADRYL ALLERG25 M5 PO (12:49)
--- NOTE | 2020-03-01 13:15 | NUR ---
PHYSICAL THERAPY TREATMENT TIME: IN 11:15 AM - OUT 11:35 AM 20 MINUTES PRESENTATION: Patient was supine in bed Head of bed elevated Bed alarm activated Identified by name and on wristband Informed consent given by patient COMPLAINTS: L shoulder pain 5/10 R shoulder pain 3/10 TRANSFERS: Supine to sitting at EOB - SBA Sit on EOB - SBA STS from EOB - SBA STS from coomode - SBA TREATMENT: Gait with no assistive device 500+ ft. x 1 with Close Supervision Ascending and Descending x 10 steps with Close Supervision Patient did not use hand rail while ascending and descending steps NO LOB or SOB with gait. COMPLAINTS POST TREATMENT: NO NEW COMPLAINTS CONCLUSION: Patient was left in sitting at EOB with call light within reach and tray table near patient. Patient does not require bed alarm. CLAYTON SHERIDAN TUGGER OPERATOR
--- NOTE | 2020-03-01 15:52 | NUR ---
SPINDLE SETTER NOTIFIED OF PATIENT DISCHARGE. PATIENTS FAMILY IS TO TRANSPORT TO [facility]. SPINDLE SETTER NOTIFIED [facility] AND WILL FAX DISCHARGE ORDERS.
--- NOTE | 2020-03-01 16:26 | NUR ---
CALLED REPORT TO ROBBI AT [facility].
--- NOTE | 2020-03-01 16:58 | NUR ---
Patient discharged to SNF via wheelchair. Discharge criteria met. History and physical and discharge summary present. Nursing discharge summary complete. Physician orders included with physician dischage summary. Report given to ROBBI. IV REMOVED WITHOUT INCIDENT. PRESSURE DRESSING APPLIED OLE ANDREWS
--- NOTE | 2020-03-02 07:39 | NUR ---
OCCUPATIONAL THERAPY CO-SIGN I approve of the Occupational Therapy notes written above. MARIAM GORDON, OTR/L
--- NOTE | 2020-03-02 08:51 | NUR ---
PHYSICAL THERAPY CO-SIGN I approve of the Physical Therapy notes written above. MILENA HILTON, PT, DPT
== END 2020-03-01 17:41 | disposition other institution (70) | DRG 554 ==
LOC: ED 19:33 → EDHOLD 21:18 → 5E 21:18 → EDHOLD 21:18 → 5E 21:39
PROVIDERS: Internal Medicine Nephrology; Student in an Organized Health Care Education/Training Program; ADMIT Internal Medicine; ATTEND Internal Medicine
PROC: 0HBRXZZ Excision of Toe Nail, External Approach (ICD-10-PCS; principal; 2020-02-29)
DX: M19.011 Primary osteoarthritis, right shoulder (principal); S42.92XD Fracture of left shoulder girdle, part unspecified, subsequent encounter for fracture with routine healing; Z88.6 Allergy status to analgesic agent; Z96.651 Presence of right artificial knee joint; M75.101 Unspecified rotator cuff tear or rupture of right shoulder, not specified as traumatic; S49.91XA Unspecified injury of right shoulder and upper arm, initial encounter; S80.12XD Contusion of left lower leg, subsequent encounter; S80.812D Abrasion, left lower leg, subsequent encounter; I10 Essential (primary) hypertension; F41.9 Anxiety disorder, unspecified; E66.9 Obesity, unspecified; M47.812 Spondylosis without myelopathy or radiculopathy, cervical region; Z88.8 Allergy status to other drugs, medicaments and biological substances; W01.0XXD Fall on same level from slipping, tripping and stumbling without subsequent striking against object, subsequent encounter; Z20.828 Contact with and (suspected) exposure to other viral communicable diseases

== ENCOUNTER → 2020-03-07 | Outpatient (CLI) | payer OTHER, MEDICAID ==
[~2020-03-07] MED LIST changes: +ACETAMINOPHEN325 M2 PO; +ASPIRIN LITE C325 MG PO; +BENADRYL ALLERG25 M5 PO; +DOXYCYCLINE100 MG PO; +LOSARTAN POTASS25 M1 PO; +PANTOPRAZOLE SO40 MG PO
== END | disposition home or self-care (01) ==
LOC: ORTHO 13:16
PROVIDERS: ATTEND Psychiatry & Neurology Psychiatry
DX: S42.292A Other displaced fracture of upper end of left humerus, initial encounter for closed fracture (principal); X58.XXXA Exposure to other specified factors, initial encounter; Y93.89 Activity, other specified; Y92.89 Other specified places as the place of occurrence of the external cause; Y99.8 Other external cause status

== ENCOUNTER → 2020-03-15 | Outpatient (CLI) | payer OTHER, MEDICAID | END | disposition home or self-care (01) | LOC: ORTHO 00:23 | PROVIDERS: ATTEND Psychiatry & Neurology Psychiatry | DX: S42.202A Unspecified fracture of upper end of left humerus, initial encounter for closed fracture (principal); X58.XXXA Exposure to other specified factors, initial encounter; Y93.89 Activity, other specified; Y92.89 Other specified places as the place of occurrence of the external cause; Y99.8 Other external cause status ==

== ENCOUNTER → 2020-03-19 | Outpatient (CLI) | payer OTHER, MEDICAID | END | disposition home or self-care (01) | LOC: LAB 12:14 | PROVIDERS: ATTEND Psychiatry & Neurology Psychiatry | DX: S42.202A Unspecified fracture of upper end of left humerus, initial encounter for closed fracture (principal); R60.0 Localized edema; W19.XXXA Unspecified fall, initial encounter; Y93.89 Activity, other specified; Y92.89 Other specified places as the place of occurrence of the external cause; Y99.8 Other external cause status ==

== ENCOUNTER → 2020-04-05 | Outpatient (CLI) | payer OTHER, MEDICAID | END | disposition home or self-care (01) | LOC: ORTHO 00:19 | PROVIDERS: ATTEND Orthopaedic Surgery | DX: S42.202D Unspecified fracture of upper end of left humerus, subsequent encounter for fracture with routine healing (principal); X58.XXXD Exposure to other specified factors, subsequent encounter ==

== ENCOUNTER → 2020-05-17 | Outpatient (CLI) | payer OTHER, MEDICAID | END | disposition home or self-care (01) | LOC: ORTHO 03:19 | PROVIDERS: ATTEND Orthopaedic Surgery | DX: S42.202D Unspecified fracture of upper end of left humerus, subsequent encounter for fracture with routine healing (principal); X58.XXXD Exposure to other specified factors, subsequent encounter ==

== ENCOUNTER → 2020-07-02 | Outpatient (CLI) | payer OTHER, MEDICAID ==
[2020-07-02 11:42] LABS: BUN 8 mg/dl (7-24); CHLORIDE 106 mmol/L (98-107); CHOLESTEROL 200 mg/dL (<200); CREATININE 0.95 mg/dL (0.70-1.30); FREE T4 1.08 ng/dl (0.76-1.46); HDL CHOLESTEROL 32 mg/dl (40-60); LDL CHOLESTEROL 125 mg/dL (9-159); POTASSIUM 3.1 mmol/L (3.5-5.1); SODIUM 143 mmol/L (136-145); TRIGLYCERIDES 215 mg/dl (<150); VLDL CHOLESTEROL 43 mg/dL (6-40)
[2020-07-02 11:48] LABS: THYROID STIM HORMONE (HS) 0.816 uIU/ml (0.358-4.75)
[2020-07-02 12:02] LABS: VITAMIN D, 25-HYDROXY 10.8 ng/mL (30-100)
== END | disposition home or self-care (01) ==
LOC: LAB 10:49
PROVIDERS: ATTEND Internal Medicine
DX: I10 Essential (primary) hypertension (principal); E55.9 Vitamin D deficiency, unspecified

== ENCOUNTER 2020-08-15 13:58 | Emergency (ER) | payer OTHER, MEDICAID ==
[2020-08-15] MEDS ORDERED: KENALOG 0.025%15 GM T (14:43)
== END 2020-08-15 14:34 | disposition home or self-care (01) ==
LOC: ED 13:58
DX: L98.8 Other specified disorders of the skin and subcutaneous tissue (principal); I10 Essential (primary) hypertension; E78.00 Pure hypercholesterolemia, unspecified; F41.9 Anxiety disorder, unspecified; M19.90 Unspecified osteoarthritis, unspecified site; Z88.8 Allergy status to other drugs, medicaments and biological substances; Z79.899 Other long term (current) drug therapy; Z98.890 Other specified postprocedural states

== ENCOUNTER → 2020-08-21 | Outpatient (CLI) | payer OTHER, MEDICAID ==
[~2020-08-21] MED LIST changes: +KENALOG 0.025%15 GM T
== END | disposition home or self-care (01) ==
LOC: ORTHO 01:05
PROVIDERS: ATTEND Orthopaedic Surgery
DX: M25.529 Pain in unspecified elbow (principal)

== ENCOUNTER → 2020-09-05 | Outpatient (CLI) | payer OTHER, MEDICAID | END | disposition home or self-care (01) | LOC: MRI 09:30 | PROVIDERS: ATTEND Orthopaedic Surgery | DX: S43.021A Posterior subluxation of right humerus, initial encounter (principal); S46.211A Strain of muscle, fascia and tendon of other parts of biceps, right arm, initial encounter; M75.121 Complete rotator cuff tear or rupture of right shoulder, not specified as traumatic; M67.411 Ganglion, right shoulder; M75.81 Other shoulder lesions, right shoulder; M75.21 Bicipital tendinitis, right shoulder; M62.511 Muscle wasting and atrophy, not elsewhere classified, right shoulder; M19.011 Primary osteoarthritis, right shoulder; M25.411 Effusion, right shoulder; M25.811 Other specified joint disorders, right shoulder; X58.XXXA Exposure to other specified factors, initial encounter; Y93.89 Activity, other specified; Y92.89 Other specified places as the place of occurrence of the external cause; Y99.8 Other external cause status ==

== ENCOUNTER 2020-11-21 08:41 | Inpatient (IN) | payer OTHER, MEDICAID ==
[~2020-11-21] VITALS: Ht 154.9 cm; Wt 118.5 kg
[2020-11-21 08:45] VITALS: BP 157/94
[2020-11-21 09:12] LABS: BASO % 0.5 % (0.0-1.0); EOS # 0.2 10*3/uL (0.0-0.4); EOS % 3.1 % (1.0-4.0); HEMATOCRIT 48.7 % (42.0-52.0); LYMPH # 1.8 10*3/uL (1.3-4.4); LYMPH % 32.7 % (27.0-41.0); MEAN CELL VOLUME 88.4 fl (80.0-94.0); MEAN CORPUSCULAR HGB 30.3 pg (27.0-31.0); MEAN CORPUSCULAR HGB CONC 34.3 g/dl (33.0-37.0); MONO # 0.5 10*3/uL (0.1-1.0); MONO % 8.7 % (3.0-9.0); NEUT % 54.8 % (47.0-73.0); PLATELET COUNT AUTOMATED 175 10*3/uL (130-400); RED BLOOD COUNT 5.51 10*6/uL (4.50-5.90); RED CELL DISTRI WIDTH 12.3 % (0-14.5); WHITE BLOOD COUNT 5.5 10*3/uL (4.8-10.8)
[2020-11-21 09:20] LABS: BILIRUBIN Negative (Negative); BLOOD Negative (Negative); CLARITY Cloudy (Clear); COLOR Yellow (Yellow); GLUCOSE Negative (Negative); KETONE Negative (Negative); LEUKO ESTERASE Negative (Negative); NITRITE Negative (Negative); PH 7.5 (4.5-8.0)
[2020-11-21 09:22] LABS: ACT PARTIAL THROMBO TIME 26.2 SECONDS (20.0-32.1)
[2020-11-21 09:29] LABS: ALBUMIN 3.5 gm/dl (3.1-4.5); ALKALINE PHOSPHATASE 84 U/L (45-117); BUN 10 mg/dl (7-24); CHLORIDE 108 mmol/L (98-107); CREATININE 0.88 mg/dL (0.70-1.30); LIPASE 183 U/L (73-393); POTASSIUM 3.2 mmol/L (3.5-5.1); SGOT/AST 16 IU/L (3-35); SGPT/ALT 26 U/L (12-78); SODIUM 141 mmol/L (136-145); TOTAL PROTEIN 7.5 gm/dL (6.4-8.2)
[2020-11-21 09:30] LABS: TROPONIN I < 0.015 ng/ml (<0.045)
[2020-11-21 09:38] LABS: BACTERIA 4+; EPITHELIAL CELLS 0-2
[2020-11-21 12:00] VITALS: BP 147/96
[2020-11-21 13:15] VITALS: BP 147/94
[2020-11-21 16:00] VITALS: BP 138/91
[2020-11-21 20:00] VITALS: BP 151/88
[2020-11-22] VITALS (9 sets, daily range): BP systolic 125–145; BP diastolic 65–92
[2020-11-22 06:02] LABS: ALBUMIN 3.6 gm/dl (3.1-4.5); ALKALINE PHOSPHATASE 80 U/L (45-117); BUN 12 mg/dl (7-24); CHLORIDE 109 mmol/L (98-107); CREATININE 0.84 mg/dL (0.70-1.30); POTASSIUM 3.5 mmol/L (3.5-5.1); SGOT/AST 16 IU/L (3-35); SGPT/ALT 24 U/L (12-78); SODIUM 139 mmol/L (136-145); TOTAL PROTEIN 7.4 gm/dL (6.4-8.2)
[2020-11-22 06:19] LABS: BASO % 0.2 % (0.0-1.0); EOS # 0.1 10*3/uL (0.0-0.4); EOS % 0.8 % (1.0-4.0); HEMATOCRIT 50.1 % (42.0-52.0); LYMPH # 0.6 10*3/uL (1.3-4.4); MEAN CELL VOLUME 89.5 fl (80.0-94.0); MEAN CORPUSCULAR HGB CONC 33.5 g/dl (33.0-37.0); MEAN PLATELET VOLUME 10.3 fl (9.6-12.3); MONO # 0.1 10*3/uL (0.1-1.0); MONO % 1.9 % (3.0-9.0); NEUT # 5.6 10*3/uL (2.3-7.9); NEUT % 86.8 % (47.0-73.0); PLATELET COUNT AUTOMATED 166 10*3/uL (130-400); RED CELL DISTRI WIDTH 12.3 % (0-14.5); WHITE BLOOD COUNT 6.4 10*3/uL (4.8-10.8)
[2020-11-23] VITALS: BP 138/76
[2020-11-23 06:19] LABS: BASO % 0.1 % (0.0-1.0); HEMATOCRIT 47.5 % (42.0-52.0); LYMPH # 0.7 10*3/uL (1.3-4.4); LYMPH % 5.5 % (27.0-41.0); MEAN CELL VOLUME 90.6 fl (80.0-94.0); MEAN CORPUSCULAR HGB CONC 33.1 g/dl (33.0-37.0); MEAN PLATELET VOLUME 10.5 fl (9.6-12.3); MONO # 0.8 10*3/uL (0.1-1.0); NEUT # 10.5 10*3/uL (2.3-7.9); PLATELET COUNT AUTOMATED 208 10*3/uL (130-400); RED BLOOD COUNT 5.24 10*6/uL (4.50-5.90); RED CELL DISTRI WIDTH 12.7 % (0-14.5)
[2020-11-23 06:46] LABS: CHLORIDE 106 mmol/L (98-107); POTASSIUM 3.8 mmol/L (3.5-5.1); SGOT/AST 10 IU/L (3-35); SGPT/ALT 22 U/L (12-78); SODIUM 139 mmol/L (136-145)
[2020-11-23 06:49] LABS: ALBUMIN 3.3 gm/dl (3.1-4.5); ALKALINE PHOSPHATASE 77 U/L (45-117); CREATININE 1.14 mg/dL (0.70-1.30); TOTAL PROTEIN 7.3 gm/dL (6.4-8.2)
[2020-11-23 06:53] LABS: BUN 22 mg/dl (7-24)
[2020-11-23 07:54] LABS: VITAMIN D, 25-HYDROXY 15.7 ng/mL (30-100)
[2020-11-23 08:00] VITALS: BP 130/60
[2020-11-23] MEDS ORDERED: COLACE100 MG PO (10:26)
[2020-11-23] MEDS ORDERED: ONDANSETRON HYDR4 M1 PO (10:26)
[2020-11-23 12:00] VITALS: BP 143/79
[2020-11-23] MEDS ORDERED: DULCOLAX5 M1 PO (13:58)
[2020-11-23] MEDS ORDERED: ZOFRAN4 MG PO (13:58)
[2020-11-23] MEDS ORDERED: D3 DOTS50 MCG GT (13:58)
== END 2020-11-23 16:10 | disposition home or self-care (01) | DRG 419 ==
LOC: ED 08:41 → 5E 11:59 → EDHOLD 11:59 → 5E 12:36
PROVIDERS: Emergency Medicine; Student in an Organized Health Care Education/Training Program; ADMIT Internal Medicine; ATTEND Internal Medicine
PROC: 0FT44ZZ Resection of Gallbladder, Percutaneous Endoscopic Approach (ICD-10-PCS; principal; 2020-11-22)
DX: K80.10 Calculus of gallbladder with chronic cholecystitis without obstruction (principal); E87.8 Other disorders of electrolyte and fluid balance, not elsewhere classified; E87.6 Hypokalemia; E83.41 Hypermagnesemia; M19.90 Unspecified osteoarthritis, unspecified site; I10 Essential (primary) hypertension; R73.9 Hyperglycemia, unspecified; E66.9 Obesity, unspecified; Z68.37 Body mass index [BMI] 37.0-37.9, adult; Z88.6 Allergy status to analgesic agent; Z88.5 Allergy status to narcotic agent; Z88.8 Allergy status to other drugs, medicaments and biological substances; Z79.899 Other long term (current) drug therapy

== ENCOUNTER 2021-01-02 08:26 | Inpatient (IN) | payer OTHER, MEDICAID ==
[~2021-01-02] VITALS: Ht 180.3 cm; Wt 126.1 kg
[~2021-01-02 08:26] MED LIST changes: +COLACE100 MG PO; +D3 DOTS50 MCG GT; +DULCOLAX5 M1 PO; +ONDANSETRON HYDR4 M1 PO; +ZOFRAN4 MG PO
[2021-01-02 08:32] VITALS: BP 146/83
[2021-01-02 08:46] LABS: BASO % 0.6 % (0.0-1.0); EOS # 0.2 10*3/uL (0.0-0.4); EOS % 4.2 % (1.0-4.0); LYMPH # 1.6 10*3/uL (1.3-4.4); LYMPH % 30.2 % (27.0-41.0); MEAN CELL VOLUME 89.2 fl (80.0-94.0); MEAN CORPUSCULAR HGB CONC 33.6 g/dl (33.0-37.0); MEAN PLATELET VOLUME 9.9 fl (9.6-12.3); MONO # 0.5 10*3/uL (0.1-1.0); MONO % 9.9 % (3.0-9.0); NEUT # 2.9 10*3/uL (2.3-7.9); NEUT % 54.7 % (47.0-73.0); PLATELET COUNT AUTOMATED 178 10*3/uL (130-400); RED BLOOD COUNT 5.27 10*6/uL (4.50-5.90); RED CELL DISTRI WIDTH 12.4 % (0-14.5); WHITE BLOOD COUNT 5.3 10*3/uL (4.8-10.8)
[2021-01-02 09:09] LABS: ALBUMIN 3.3 gm/dl (3.1-4.5); ALKALINE PHOSPHATASE 75 U/L (45-117); BUN 17 mg/dl (7-24); CHLORIDE 108 mmol/L (98-107); POTASSIUM 3.6 mmol/L (3.5-5.1); SGOT/AST 13 IU/L (3-35); SGPT/ALT 25 U/L (12-78); SODIUM 140 mmol/L (136-145)
[2021-01-02 09:14] LABS: TROPONIN I < 0.015 ng/ml (<0.045)
[2021-01-02 11:45] VITALS: BP 148/80
[2021-01-02] MEDS ORDERED: HYDR25T PO (13:14)
[2021-01-02 16:00] VITALS: BP 147/76
[2021-01-02 20:00] VITALS: BP 147/91
[2021-01-03] VITALS: BP 148/88
[2021-01-03 01:30] LABS: BILIRUBIN Negative (Negative); BLOOD Negative (Negative); CLARITY Clear (Clear); COLOR Yellow (Yellow); GLUCOSE Negative (Negative); KETONE Negative (Negative); LEUKO ESTERASE Negative (Negative); NITRITE Negative (Negative); PH 5.5 (4.5-8.0)
[2021-01-03 01:58] LABS: WBC 0-2 wbc/hpf (0-5)
[2021-01-03 06:29] LABS: BASO % 0.4 % (0.0-1.0); EOS # 0.2 10*3/uL (0.0-0.4); EOS % 3.7 % (1.0-4.0); HEMATOCRIT 47.2 % (42.0-52.0); LYMPH # 1.3 10*3/uL (1.3-4.4); MEAN CELL VOLUME 90.4 fl (80.0-94.0); MEAN CORPUSCULAR HGB 30.1 pg (27.0-31.0); MEAN CORPUSCULAR HGB CONC 33.3 g/dl (33.0-37.0); MEAN PLATELET VOLUME 9.9 fl (9.6-12.3); MONO # 0.6 10*3/uL (0.1-1.0); MONO % 10.8 % (3.0-9.0); NEUT # 3.1 10*3/uL (2.3-7.9); NEUT % 59.9 % (47.0-73.0); PLATELET COUNT AUTOMATED 159 10*3/uL (130-400); RED BLOOD COUNT 5.22 10*6/uL (4.50-5.90); RED CELL DISTRI WIDTH 12.6 % (0-14.5); WHITE BLOOD COUNT 5.2 10*3/uL (4.8-10.8)
[2021-01-03 06:40] LABS: ACT PARTIAL THROMBO TIME 25.9 SECONDS (20.0-32.1)
[2021-01-03 06:46] LABS: ALBUMIN 3.2 gm/dl (3.1-4.5); BUN 17 mg/dl (7-24); CHLORIDE 107 mmol/L (98-107); CHOLESTEROL 189 mg/dL (<200); CREATININE 0.75 mg/dL (0.70-1.30); POTASSIUM 3.4 mmol/L (3.5-5.1); SGOT/AST 16 IU/L (3-35); SGPT/ALT 25 U/L (12-78); SODIUM 141 mmol/L (136-145); TOTAL PROTEIN 6.7 gm/dL (6.4-8.2); TRIGLYCERIDES 175 mg/dl (<150)
[2021-01-03 06:52] LABS: ALKALINE PHOSPHATASE 71 U/L (45-117); FREE T4 0.95 ng/dl (0.76-1.46); LDL CHOLESTEROL 121 mg/dL (9-159)
[2021-01-03 08:00] VITALS: BP 152/96
[2021-01-03 12:00] VITALS: BP 146/88
[2021-01-03 16:00] VITALS: BP 150/88
[2021-01-03] MEDS ORDERED: VITAMIN D350 MCG PO (17:53)
[2021-01-03] MEDS ORDERED: FUROSEMIDE20 M1 PO (17:54)
[2021-01-03] MEDS ORDERED: K-LOR 20MEQ20 ME1 PO (17:55)
== END 2021-01-03 18:58 | disposition home or self-care (01) | DRG 291 ==
LOC: ED 08:26 → 5E 10:38 → EDHOLD 10:38 → 5E 12:10
PROVIDERS: Social Worker Clinical; Student in an Organized Health Care Education/Training Program; ADMIT Internal Medicine; ATTEND Internal Medicine
PROC: 4A02XM4 Measurement of Cardiac Total Activity, External Approach (ICD-10-PCS; principal; 2021-01-03)
PROC: 3E073KZ Introduction of Other Diagnostic Substance into Coronary Artery, Percutaneous Approach (ICD-10-PCS; 2021-01-03)
DX: I11.0 Hypertensive heart disease with heart failure (principal); I50.31 Acute diastolic (congestive) heart failure; R07.2 Precordial pain; E83.41 Hypermagnesemia; E87.6 Hypokalemia; E87.8 Other disorders of electrolyte and fluid balance, not elsewhere classified; Z96.651 Presence of right artificial knee joint; E78.5 Hyperlipidemia, unspecified; E66.9 Obesity, unspecified; F41.9 Anxiety disorder, unspecified; M19.011 Primary osteoarthritis, right shoulder; M47.892 Other spondylosis, cervical region; R73.9 Hyperglycemia, unspecified; I08.1 Rheumatic disorders of both mitral and tricuspid valves; Z88.6 Allergy status to analgesic agent; Z87.81 Personal history of (healed) traumatic fracture; Z88.8 Allergy status to other drugs, medicaments and biological substances; Z89.112 Acquired absence of left hand; Z68.38 Body mass index [BMI] 38.0-38.9, adult

== ENCOUNTER → 2021-05-27 | Outpatient (CLI) | payer OTHER, MEDICAID ==
[~2021-05-27] MED LIST changes: +FUROSEMIDE20 M1 PO; +K-LOR 20MEQ20 ME1 PO; +VITAMIN D350 MCG PO
== END | disposition home or self-care (01) ==
LOC: RAD 10:51
PROVIDERS: ATTEND Orthopaedic Surgery
DX: M19.011 Primary osteoarthritis, right shoulder (principal); M75.111 Incomplete rotator cuff tear or rupture of right shoulder, not specified as traumatic

== ENCOUNTER 2021-06-30 16:17 | Emergency (ER) | payer OTHER, MEDICAID ==
[~2021-06-30] VITALS: Ht 180.3 cm; Wt 122.5 kg
== END 2021-06-30 17:32 | disposition left against medical advice (07) ==
LOC: ED 16:17
DX: Z53.21 Procedure and treatment not carried out due to patient leaving prior to being seen by health care provider (principal)

== ENCOUNTER → 2021-07-09 | Outpatient (CLI) | payer OTHER, MEDICAID ==
[2021-07-09 14:38] LABS: BASO % 0.5 % (0.0-1.0); EOS # 0.3 10*3/uL (0.0-0.4); EOS % 4.5 % (1.0-4.0); HEMATOCRIT 49.7 % (42.0-52.0); LYMPH # 2.2 10*3/uL (1.3-4.4); LYMPH % 32.6 % (27.0-41.0); MEAN CELL VOLUME 88.9 fl (80.0-94.0); MEAN CORPUSCULAR HGB 29.9 pg (27.0-31.0); MEAN CORPUSCULAR HGB CONC 33.6 g/dl (33.0-37.0); MEAN PLATELET VOLUME 9.7 fl (9.6-12.3); MONO # 0.6 10*3/uL (0.1-1.0); MONO % 9.3 % (3.0-9.0); NEUT # 3.5 10*3/uL (2.3-7.9); NEUT % 52.8 % (47.0-73.0); PLATELET COUNT AUTOMATED 204 10*3/uL (130-400); RED BLOOD COUNT 5.59 10*6/uL (4.50-5.90); RED CELL DISTRI WIDTH 12.1 % (0-14.5); WHITE BLOOD COUNT 6.7 10*3/uL (4.8-10.8)
[2021-07-09 14:49] LABS: BUN 9 mg/dl (7-24); CHLORIDE 105 mmol/L (98-107); CREATININE 1.02 mg/dL (0.70-1.30); POTASSIUM 3.1 mmol/L (3.5-5.1); SODIUM 141 mmol/L (136-145)
== END | disposition home or self-care (01) ==
LOC: LAB 14:10
PROVIDERS: ATTEND Orthopaedic Surgery
DX: I49.3 Ventricular premature depolarization (principal); R94.31 Abnormal electrocardiogram [ECG] [EKG]

== ENCOUNTER 2021-08-02 12:28 | Emergency (ER) | payer OTHER, MEDICAID ==
[~2021-08-02] VITALS: Ht 180.3 cm; Wt 122.5 kg
[2021-08-02] MEDS ORDERED: PREDNISONE50 MG PO (14:46)
== END 2021-08-02 14:48 | disposition home or self-care (01) ==
LOC: ED 12:28
DX: M79.604 Pain in right leg (principal); M79.605 Pain in left leg; Z88.8 Allergy status to other drugs, medicaments and biological substances; Z79.899 Other long term (current) drug therapy; Z90.49 Acquired absence of other specified parts of digestive tract; Z98.890 Other specified postprocedural states; Z90.89 Acquired absence of other organs; W18.39XA Other fall on same level, initial encounter; Y93.89 Activity, other specified; Y92.89 Other specified places as the place of occurrence of the external cause; Y99.8 Other external cause status

== ENCOUNTER → 2021-10-03 | Outpatient (CLI) | payer OTHER, MEDICAID ==
[~2021-10-03] MED LIST changes: +Carafate1 GM PO; +ENOXAPARIN120 MG/0.2 SC; +MIRALAX POWDER17 G1 PO; +PREDNISONE10 MG PO; +PREDNISONE50 MG PO
[2021-10-03 14:02] LABS: BASO % 0.7 % (0.0-1.0); EOS # 0.2 10*3/uL (0.0-0.4); EOS % 2.6 % (1.0-4.0); HEMATOCRIT 42.3 % (42.0-52.0); LYMPH # 2.4 10*3/uL (1.3-4.4); LYMPH % 39.6 % (27.0-41.0); MEAN CELL VOLUME 92.4 fl (80.0-94.0); MEAN CORPUSCULAR HGB 30.1 pg (27.0-31.0); MEAN CORPUSCULAR HGB CONC 32.6 g/dl (33.0-37.0); MONO # 0.6 10*3/uL (0.1-1.0); MONO % 9.3 % (3.0-9.0); NEUT # 2.9 10*3/uL (2.3-7.9); NEUT % 47.3 % (47.0-73.0); PLATELET COUNT AUTOMATED 273 10*3/uL (130-400); RED BLOOD COUNT 4.58 10*6/uL (4.50-5.90); RED CELL DISTRI WIDTH 13.4 % (0-14.5); WHITE BLOOD COUNT 6.1 10*3/uL (4.8-10.8)
[2021-10-03 14:21] LABS: ALKALINE PHOSPHATASE 78 U/L (45-117); BUN 8 mg/dl (7-24); CHLORIDE 105 mmol/L (98-107); CREATININE 0.73 mg/dL (0.70-1.30); FREE T4 1.02 ng/dl (0.76-1.46); POTASSIUM 3.6 mmol/L (3.5-5.1); SGOT/AST 16 IU/L (3-35); SGPT/ALT 17 U/L (12-78); SODIUM 139 mmol/L (136-145); TOTAL PROTEIN 7.2 gm/dL (6.4-8.2)
[2021-10-03 14:28] LABS: THYROID STIM HORMONE (HS) 0.849 uIU/ml (0.358-4.75)
[2021-10-03 14:43] LABS: VITAMIN D, 25-HYDROXY 13.8 ng/mL (30-100)
== END | disposition home or self-care (01) ==
LOC: LAB 13:41
PROVIDERS: ATTEND Internal Medicine
DX: U07.1 COVID-19 (principal); R20.0 Anesthesia of skin; I10 Essential (primary) hypertension; E55.9 Vitamin D deficiency, unspecified; J98.4 Other disorders of lung

== ENCOUNTER 2021-11-01 19:35 | Emergency (ER) | payer OTHER, MEDICAID ==
[~2021-11-01] VITALS: Ht 180.3 cm; Wt 102.1 kg
[~2021-11-01 19:35] MED LIST changes: +VAZALORE81 MG PO
[2021-11-01 20:51] LABS: BASO % 0.6 % (0.0-1.0); EOS # 0.4 10*3/uL (0.0-0.4); EOS % 5.5 % (1.0-4.0); HEMATOCRIT 44.3 % (42.0-52.0); LYMPH # 2.4 10*3/uL (1.3-4.4); LYMPH % 35.5 % (27.0-41.0); MEAN CELL VOLUME 88.1 fl (80.0-94.0); MEAN CORPUSCULAR HGB 29.2 pg (27.0-31.0); MEAN CORPUSCULAR HGB CONC 33.2 g/dl (33.0-37.0); MEAN PLATELET VOLUME 9.4 fl (9.6-12.3); MONO # 0.7 10*3/uL (0.1-1.0); MONO % 10.6 % (3.0-9.0); NEUT # 3.2 10*3/uL (2.3-7.9); NEUT % 47.7 % (47.0-73.0); PLATELET COUNT AUTOMATED 224 10*3/uL (130-400); RED BLOOD COUNT 5.03 10*6/uL (4.50-5.90); RED CELL DISTRI WIDTH 13.1 % (0-14.5); WHITE BLOOD COUNT 6.8 10*3/uL (4.8-10.8)
[2021-11-01 21:07] LABS: ALKALINE PHOSPHATASE 61 U/L (45-117); BUN 8 mg/dl (7-24); CHLORIDE 106 mmol/L (98-107); CREATININE 0.78 mg/dL (0.70-1.30); LIPASE 149 U/L (73-393); POTASSIUM 3.1 mmol/L (3.5-5.1); SGOT/AST 17 IU/L (3-35); SGPT/ALT 16 U/L (12-78); SODIUM 141 mmol/L (136-145)
[2021-11-02] MEDS ORDERED: CIPRO500 MG PO (01:33)
[2021-11-02] MEDS ORDERED: ZOFRAN4 MG PO (01:33)
[2021-11-02] MEDS ORDERED: METRONIDAZOLE500 M1 PO (01:33)
[2021-11-02] MEDS ORDERED: FLORASTOR250 MG PO (01:33)
== END 2021-11-02 01:38 | disposition home or self-care (01) ==
LOC: ED 19:35
PROVIDERS: Emergency Medicine
DX: R11.0 Nausea (principal); R10.9 Unspecified abdominal pain; R19.7 Diarrhea, unspecified; E87.6 Hypokalemia; Z88.6 Allergy status to analgesic agent; Z88.8 Allergy status to other drugs, medicaments and biological substances; Z79.899 Other long term (current) drug therapy

== ENCOUNTER 2022-01-03 10:32 | Emergency (ER) | payer OTHER, MEDICAID ==
[~2022-01-03 10:32] MED LIST changes: +CIPRO500 MG PO; +FLORASTOR250 MG PO; +METRONIDAZOLE500 M1 PO
[2022-01-03 11:45] LABS: BASO % 0.4 % (0.0-1.0); EOS # 0.3 10*3/uL (0.0-0.4); EOS % 4.1 % (1.0-4.0); HEMATOCRIT 45.7 % (42.0-52.0); LYMPH # 2.7 10*3/uL (1.3-4.4); LYMPH % 37.9 % (27.0-41.0); MEAN CELL VOLUME 85.6 fl (80.0-94.0); MEAN CORPUSCULAR HGB 27.9 pg (27.0-31.0); MEAN CORPUSCULAR HGB CONC 32.6 g/dl (33.0-37.0); MEAN PLATELET VOLUME 9.6 fl (9.6-12.3); MONO # 0.6 10*3/uL (0.1-1.0); MONO % 8.7 % (3.0-9.0); NEUT # 3.4 10*3/uL (2.3-7.9); NEUT % 48.6 % (47.0-73.0); PLATELET COUNT AUTOMATED 191 10*3/uL (130-400); RED BLOOD COUNT 5.34 10*6/uL (4.50-5.90); RED CELL DISTRI WIDTH 13.9 % (0-14.5)
[2022-01-03] MEDS ORDERED: HYDROCODONE-AC1 EAC1 PO (11:57)
[2022-01-03] MEDS ORDERED: POTASSIUM CHLO10 ME5 PO (11:58)
[2022-01-03] MEDS ORDERED: AMLODIPINE BESY10 MG PO (11:58)
[2022-01-03] MEDS ORDERED: APRESOLINE25 MG PO (11:58)
[2022-01-03 12:01] LABS: ALKALINE PHOSPHATASE 70 U/L (45-117); BUN 7 mg/dl (7-24); CHLORIDE 108 mmol/L (98-107); CREATININE 0.76 mg/dL (0.70-1.30); POTASSIUM 3.2 mmol/L (3.5-5.1); SGOT/AST 21 IU/L (3-35); SGPT/ALT 27 U/L (12-78); SODIUM 141 mmol/L (136-145); TOTAL PROTEIN 7.1 gm/dL (6.4-8.2)
== END 2022-01-03 14:53 | disposition home or self-care (01) ==
LOC: ED 10:32
PROVIDERS: Nurse Practitioner Family
DX: R59.0 Localized enlarged lymph nodes (principal); Z88.8 Allergy status to other drugs, medicaments and biological substances; Z79.899 Other long term (current) drug therapy; Z98.890 Other specified postprocedural states; Z90.49 Acquired absence of other specified parts of digestive tract

== ENCOUNTER → 2022-01-21 | Outpatient (CLI) | payer OTHER, MEDICAID ==
[~2022-01-21] MED LIST changes: +AMLODIPINE BESY10 MG PO; +APRESOLINE25 MG PO; +HYDROCODONE-AC1 EAC1 PO; +POTASSIUM CHLO10 ME5 PO
== END | disposition home or self-care (01) ==
LOC: CARD 08:00
PROVIDERS: ATTEND Internal Medicine
DX: I49.1 Atrial premature depolarization (principal)

== ENCOUNTER → 2022-02-07 | Outpatient (CLI) | payer OTHER, MEDICAID | END | disposition home or self-care (01) | LOC: RAD 13:56 | PROVIDERS: ATTEND Orthopaedic Surgery | DX: M19.031 Primary osteoarthritis, right wrist (principal); M21.861 Other specified acquired deformities of right lower leg; M21.831 Other specified acquired deformities of right forearm; M25.421 Effusion, right elbow; M19.021 Primary osteoarthritis, right elbow ==

== ENCOUNTER → 2022-02-14 | Outpatient (CLI) | payer OTHER, MEDICAID | END | disposition home or self-care (01) | LOC: ORTHO 02:14 | PROVIDERS: ATTEND Orthopaedic Surgery | DX: M19.121 Post-traumatic osteoarthritis, right elbow (principal) ==

== ENCOUNTER → 2022-03-07 | Outpatient (CLI) | payer OTHER, MEDICAID | END | disposition home or self-care (01) | LOC: ORTHO 00:24 | PROVIDERS: ATTEND Orthopaedic Surgery | DX: M19.032 Primary osteoarthritis, left wrist (principal); M25.832 Other specified joint disorders, left wrist ==

== ENCOUNTER → 2022-04-22 | Day surgery (SDC) | payer OTHER, MEDICAID ==
[2022-04-18 13:55] VITALS: BP 138/96
[2022-04-18 15:02] LABS: BUN 11 mg/dl (7-24); CHLORIDE 109 mmol/L (98-107); CREATININE 1.01 mg/dL (0.70-1.30); POTASSIUM 3.5 mmol/L (3.5-5.1); SODIUM 142 mmol/L (136-145)
[~2022-04-22] VITALS: Ht 180.3 cm; Wt 117.9 kg
[~2022-04-22] MED LIST changes: +ATENOLOL25 MG PO; +ROXICODONE5 MG PO
[2022-04-22 07:30] VITALS: BP 130/91
[2022-04-22 12:11] VITALS: BP 117/74
[2022-04-22 12:26] VITALS: BP 124/78
[2022-04-22 12:41] VITALS: BP 95/58
[2022-04-22 12:56] VITALS: BP 98/56
[2022-04-22 13:09] VITALS: BP 103/61
== END | disposition home or self-care (01) ==
LOC: SDC 04-18 14:00
PROVIDERS: ATTEND Orthopaedic Surgery
DX: M19.131 Post-traumatic osteoarthritis, right wrist (principal); M19.121 Post-traumatic osteoarthritis, right elbow; I10 Essential (primary) hypertension; E78.00 Pure hypercholesterolemia, unspecified; M19.90 Unspecified osteoarthritis, unspecified site; Z88.8 Allergy status to other drugs, medicaments and biological substances; Z79.899 Other long term (current) drug therapy

== ENCOUNTER 2022-05-16 12:25 | Emergency (ER) | payer OTHER, MEDICAID ==
[~2022-05-16] VITALS: Ht 180.3 cm; Wt 120.2 kg
[2022-05-16] MEDS ORDERED: OXYCODONE HCL5 M1 PO (14:41)
[2022-05-16] MEDS ORDERED: OXYCODONE HCL5 MG PO (15:09)
== END 2022-05-16 14:46 | disposition home or self-care (01) ==
LOC: ED 12:25
DX: M15.4 Erosive (osteo)arthritis (principal); Z88.8 Allergy status to other drugs, medicaments and biological substances; Z79.899 Other long term (current) drug therapy; Z90.49 Acquired absence of other specified parts of digestive tract; Z90.89 Acquired absence of other organs; Z96.651 Presence of right artificial knee joint; Z98.890 Other specified postprocedural states

== ENCOUNTER → 2022-06-12 | Outpatient (CLI) | payer OTHER, MEDICAID ==
[~2022-06-12] MED LIST changes: +OXYCODONE HCL5 M1 PO
== END | disposition home or self-care (01) ==
LOC: CARD 08:40
PROVIDERS: ATTEND Internal Medicine
DX: I49.3 Ventricular premature depolarization (principal)

== ENCOUNTER → 2022-07-17 | Outpatient (CLI) | payer OTHER, MEDICAID | END | disposition home or self-care (01) | LOC: CARD 07-15 13:00 → CT 07-15 14:00 → LAB 00:54 → CARD 12:00 | PROVIDERS: ATTEND Internal Medicine | DX: Z01.818 Encounter for other preprocedural examination (principal); R91.1 Solitary pulmonary nodule; J84.10 Pulmonary fibrosis, unspecified; I49.3 Ventricular premature depolarization; M25.78 Osteophyte, vertebrae; M47.814 Spondylosis without myelopathy or radiculopathy, thoracic region; M19.012 Primary osteoarthritis, left shoulder; M19.011 Primary osteoarthritis, right shoulder; J47.9 Bronchiectasis, uncomplicated ==

== ENCOUNTER → 2022-08-21 | Day surgery (SDC) | payer OTHER, MEDICAID ==
[2022-08-18 13:02] VITALS: BP 167/104
[2022-08-18 13:47] LABS: BUN 10 mg/dl (9-23); CHLORIDE 99 mmol/L (98-107); POTASSIUM 3.2 mmol/L (3.4-5.1)
[~2022-08-21] VITALS: Ht 180.3 cm; Wt 118.4 kg
== END | disposition home or self-care (01) ==
LOC: SDC 08-18 13:15
PROVIDERS: ATTEND Orthopaedic Surgery
DX: M12.531 Traumatic arthropathy, right wrist (principal); I10 Essential (primary) hypertension; E78.00 Pure hypercholesterolemia, unspecified; Z53.8 Procedure and treatment not carried out for other reasons

== ENCOUNTER → 2022-08-26 | Outpatient (CLI) | payer OTHER, MEDICAID | END | disposition home or self-care (01) | LOC: RAD 16:17 | PROVIDERS: ATTEND Internal Medicine | DX: J18.9 Pneumonia, unspecified organism (principal) ==

== ENCOUNTER → 2022-09-04 | Day surgery (SDC) | payer OTHER, MEDICAID ==
[~2022-09-04] VITALS: Wt 118.4 kg
[2022-09-04 08:27] VITALS: BP 145/91
[2022-09-04 12:01] VITALS: BP 127/85
[2022-09-04 12:16] VITALS: BP 132/91
[2022-09-04 12:31] VITALS: BP 113/70
[2022-09-04 12:46] VITALS: BP 134/82
[2022-09-04 13:01] VITALS: BP 135/58
== END | disposition home or self-care (01) ==
LOC: SDC 09-02 08:00
PROVIDERS: ATTEND Orthopaedic Surgery
DX: M19.031 Primary osteoarthritis, right wrist (principal); J18.9 Pneumonia, unspecified organism; J84.10 Pulmonary fibrosis, unspecified; I10 Essential (primary) hypertension; M19.90 Unspecified osteoarthritis, unspecified site; E78.00 Pure hypercholesterolemia, unspecified; F32.A Depression, unspecified; Z96.651 Presence of right artificial knee joint; Z98.890 Other specified postprocedural states; Z79.899 Other long term (current) drug therapy

== ENCOUNTER 2023-03-14 15:15 | Emergency (ER) | payer OTHER, MEDICAID ==
[~2023-03-14] VITALS: Ht 180.3 cm; Wt 120.2 kg
[~2023-03-14 15:15] MED LIST changes: +HYDRALAZINE HYD50 MG PO
== END 2023-03-14 21:02 | disposition home or self-care (01) ==
LOC: ED 15:15
DX: G89.18 Other acute postprocedural pain (principal); I10 Essential (primary) hypertension; M19.90 Unspecified osteoarthritis, unspecified site; E78.00 Pure hypercholesterolemia, unspecified; Z86.16 Personal history of COVID-19; Z88.6 Allergy status to analgesic agent; Z88.8 Allergy status to other drugs, medicaments and biological substances; Z90.49 Acquired absence of other specified parts of digestive tract; Z90.89 Acquired absence of other organs; Z98.890 Other specified postprocedural states; Z96.651 Presence of right artificial knee joint; F17.200 Nicotine dependence, unspecified, uncomplicated

== ENCOUNTER → 2023-05-19 | Outpatient (CLI) | payer OTHER, MEDICAID | END | disposition home or self-care (01) | LOC: CARD 10:17 | PROVIDERS: ATTEND Internal Medicine | DX: R00.1 Bradycardia, unspecified (principal) ==

== ENCOUNTER 2023-09-24 13:35 | Emergency (ER) | payer OTHER, MEDICAID ==
[~2023-09-24] VITALS: Ht 180.3 cm; Wt 121.6 kg
[~2023-09-24 13:35] MED LIST changes: +LASIX40 MG PO; +METOPROLOL SUCC50 M1 PO
[2023-09-24 14:58] LABS: BASO % 0.6 % (0.0-1.0); EOS # 0.3 10*3/uL (0.0-0.4); EOS % 5.1 % (1.0-4.0); HEMATOCRIT 37.5 % (42.0-52.0); LYMPH # 0.8 10*3/uL (1.3-4.4); LYMPH % 14.9 % (27.0-41.0); MEAN CELL VOLUME 96.2 fl (80.0-94.0); MEAN CORPUSCULAR HGB 30.3 pg (27.0-31.0); MEAN CORPUSCULAR HGB CONC 31.5 g/dl (33.0-37.0); MEAN PLATELET VOLUME 9.3 fl (9.6-12.3); MONO # 0.5 10*3/uL (0.1-1.0); MONO % 9.6 % (3.0-9.0); NEUT # 3.5 10*3/uL (2.3-7.9); NEUT % 69.2 % (47.0-73.0); PLATELET COUNT AUTOMATED 200 10*3/uL (130-400); RED CELL DISTRI WIDTH 14.8 % (0-14.5); WHITE BLOOD COUNT 5.1 10*3/uL (4.8-10.8)
[2023-09-24 15:09] LABS: ACT PARTIAL THROMBO TIME 28.6 SECONDS (20.0-32.1)
[2023-09-24 15:20] LABS: ALKALINE PHOSPHATASE 97 U/L (46-116); BUN 10 mg/dl (9-23); CHLORIDE 102 mmol/L (98-107); LIPASE 52 U/L (12-53); POTASSIUM 3.5 mmol/L (3.4-5.1); SGPT/ALT 132 U/L (5-49); TOTAL PROTEIN 5.9 gm/dL (6.0-8.0)
== END 2023-09-24 20:20 | disposition short-term general hospital (02) ==
LOC: ED 13:35
PROVIDERS: Emergency Medicine
DX: T81.31XA Disruption of external operation (surgical) wound, not elsewhere classified, initial encounter (principal); I31.39 Other pericardial effusion (noninflammatory); Z88.6 Allergy status to analgesic agent; Z88.8 Allergy status to other drugs, medicaments and biological substances; Z79.899 Other long term (current) drug therapy; Z90.49 Acquired absence of other specified parts of digestive tract; Z90.89 Acquired absence of other organs; Z96.651 Presence of right artificial knee joint; Z98.890 Other specified postprocedural states; Y84.0 Cardiac catheterization as the cause of abnormal reaction of the patient, or of later complication, without mention of misadventure at the time of the procedure; Y92.89 Other specified places as the place of occurrence of the external cause

== ENCOUNTER → 2023-11-16 | Outpatient (CLI) | payer OTHER, MEDICAID | END | disposition home or self-care (01) | LOC: LAB 10:14 | PROVIDERS: ATTEND Internal Medicine | DX: Z11.59 Encounter for screening for other viral diseases (principal) ==

== ENCOUNTER → 2023-11-20 | Outpatient (CLI) | payer OTHER, MEDICAID ==
[2023-11-20 13:05] LABS: BUN 9 mg/dl (9-23); CHLORIDE 103 mmol/L (98-107); POTASSIUM 2.9 mmol/L (3.4-5.1)
== END | disposition home or self-care (01) ==
LOC: LAB 12:27
PROVIDERS: ATTEND Nurse Practitioner Adult Health
DX: I50.20 Unspecified systolic (congestive) heart failure (principal)

== ENCOUNTER → 2024-02-02 | Outpatient (CLI) | payer OTHER, MEDICAID ==
[~2024-02-02] MED LIST changes: +PERFLUTREN PROTEIN-A MICROSPHR 3 ML VIAL IV ONE
== END | disposition home or self-care (01) ==
LOC: CARD 11:17
PROVIDERS: ATTEND Internal Medicine
DX: I35.8 Other nonrheumatic aortic valve disorders (principal); I42.9 Cardiomyopathy, unspecified

== ENCOUNTER → 2024-08-02 | Outpatient (CLI) | payer OTHER, MEDICAID ==
[~2024-08-02] MED LIST changes: -PERFLUTREN PROTEIN-A MICROSPHR 3 ML VIAL IV ONE; +Perflutren Protein Type A Mi 2 ML VIAL IV ONE
== END | disposition home or self-care (01) ==
LOC: CARD 13:12
PROVIDERS: ATTEND Nurse Practitioner Family
DX: I34.0 Nonrheumatic mitral (valve) insufficiency (principal); I50.22 Chronic systolic (congestive) heart failure

== ENCOUNTER 2024-10-08 13:07 | Emergency (ER) | payer OTHER, MEDICAID ==
[~2024-10-08] VITALS: Ht 180.3 cm; Wt 120.2 kg
[~2024-10-08 13:07] MED LIST changes: -Perflutren Protein Type A Mi 2 ML VIAL IV ONE
[2024-10-08] MEDS ORDERED: IMDUR SA30 MG PO (13:46)
[2024-10-08] MEDS ORDERED: OXYCODONE HCL (IR) 5 MG TAB PO ONE (13:55)
[2024-10-08] MEDS ORDERED: OXYCODONE HCL (IR) 10 MG TABLET PO ONE (15:55)
== END 2024-10-08 16:20 | disposition home or self-care (01) ==
LOC: ED 13:07
DX: S83.91XA Sprain of unspecified site of right knee, initial encounter (principal); S50.811A Abrasion of right forearm, initial encounter; Z96.651 Presence of right artificial knee joint; Z88.6 Allergy status to analgesic agent; Z88.8 Allergy status to other drugs, medicaments and biological substances; Z79.899 Other long term (current) drug therapy; Z98.890 Other specified postprocedural states; Z90.49 Acquired absence of other specified parts of digestive tract; W01.198A Fall on same level from slipping, tripping and stumbling with subsequent striking against other object, initial encounter; Y93.89 Activity, other specified; Y92.89 Other specified places as the place of occurrence of the external cause; Y99.8 Other external cause status

== ENCOUNTER 2024-12-24 02:46 | Emergency (ER) | payer OTHER, MEDICAID ==
[~2024-12-24] VITALS: Ht 180.3 cm; Wt 120.2 kg
[~2024-12-24 02:46] MED LIST changes: +IMDUR SA30 MG PO
[2024-12-24] MEDS ORDERED: traMADol Hydrochloride 50 MG TAB PO ONE (03:15)
[2024-12-24] MEDS ORDERED: METHOCARBAMOL750 M1 PO (06:45)
== END 2024-12-24 06:53 | disposition home or self-care (01) ==
LOC: ED 02:46
DX: S20.212A Contusion of left front wall of thorax, initial encounter (principal); I10 Essential (primary) hypertension; E78.00 Pure hypercholesterolemia, unspecified; Z79.899 Other long term (current) drug therapy; Z88.1 Allergy status to other antibiotic agents; Z88.6 Allergy status to analgesic agent; Z88.8 Allergy status to other drugs, medicaments and biological substances; Z90.49 Acquired absence of other specified parts of digestive tract; Z98.890 Other specified postprocedural states; W01.0XXA Fall on same level from slipping, tripping and stumbling without subsequent striking against object, initial encounter; Y93.89 Activity, other specified; Y92.89 Other specified places as the place of occurrence of the external cause; Y99.8 Other external cause status

== ENCOUNTER 2024-12-26 10:20 | Emergency (ER) | payer OTHER, MEDICAID ==
[~2024-12-26] VITALS: Ht 180.3 cm; Wt 117.9 kg
[~2024-12-26 10:20] MED LIST changes: +METHOCARBAMOL750 M1 PO
[2024-12-26] MEDS ORDERED: OXYCODONE HCL5 MG PO (11:08)
[2024-12-26] MEDS ORDERED: Ondansetron4 MG PO (11:08)
[2024-12-26] MEDS ORDERED: PREDNISONE20 M1 PO (11:08)
[2024-12-26] MEDS ORDERED: OXYCODONE HCL (IR) 5 MG TAB PO ONE (11:10)
[2024-12-26] MEDS ORDERED: [UNRECOGNIZED DRUG - OTHER] OPH ONE (11:10)
[2024-12-26] MEDS ORDERED: BACITRACIN ZINC OPH ONE (11:10)
[2024-12-26] MEDS ORDERED: NEOMYCIN OPH ONE (11:10)
[2024-12-26] MEDS ORDERED: Ondansetron Hydrochloride 4 MG TAB PO ONE (11:10)
[2024-12-26] MEDS ORDERED: Dexamethasone Sodium Phospha 20 MG/5 ML VIAL IM ONE (11:10)
[2024-12-26] MEDS ORDERED: Bacitracin Zinc 14 GM TUBE T ONE (11:15)
== END 2024-12-26 11:22 | disposition home or self-care (01) ==
LOC: ED 10:20
DX: S20.212A Contusion of left front wall of thorax, initial encounter (principal); S60.512A Abrasion of left hand, initial encounter; S60.511A Abrasion of right hand, initial encounter; I10 Essential (primary) hypertension; E78.00 Pure hypercholesterolemia, unspecified; Z79.899 Other long term (current) drug therapy; Z88.6 Allergy status to analgesic agent; Z88.8 Allergy status to other drugs, medicaments and biological substances; Z90.49 Acquired absence of other specified parts of digestive tract; Z90.89 Acquired absence of other organs; Z98.890 Other specified postprocedural states; W18.39XA Other fall on same level, initial encounter; Y93.89 Activity, other specified; Y92.89 Other specified places as the place of occurrence of the external cause; Y99.8 Other external cause status

== ENCOUNTER → 2025-01-02 | Outpatient (CLI) | payer OTHER, MEDICAID ==
[~2025-01-02] MED LIST changes: +Ondansetron4 MG PO; +PREDNISONE20 M1 PO
== END | disposition home or self-care (01) ==
LOC: ORTHO 07:47
PROVIDERS: ATTEND Orthopaedic Surgery
DX: S92.514A Nondisplaced fracture of proximal phalanx of right lesser toe(s), initial encounter for closed fracture (principal); M77.31 Calcaneal spur, right foot; M77.51 Other enthesopathy of right foot and ankle; M79.671 Pain in right foot; X58.XXXA Exposure to other specified factors, initial encounter; Y93.89 Activity, other specified; Y92.89 Other specified places as the place of occurrence of the external cause; Y99.8 Other external cause status

== ENCOUNTER 2025-05-20 14:05 | Emergency (ER) | payer OTHER, MEDICAID ==
[~2025-05-20] VITALS: Ht 180.3 cm; Wt 113.4 kg
[2025-05-20] MEDS ORDERED: OXYCODONE HCL (IR) 5 MG TAB PO ONE (14:45)
[2025-05-20] MEDS ORDERED: OXYCODONE5 M1 PO (16:16)
[2025-05-20] MEDS ORDERED: OXYCODONE HCL5 MG PO (16:36)
== END 2025-05-20 16:32 | disposition home or self-care (01) ==
LOC: ED 14:05
DX: S92.511A Displaced fracture of proximal phalanx of right lesser toe(s), initial encounter for closed fracture (principal); I10 Essential (primary) hypertension; E78.00 Pure hypercholesterolemia, unspecified; G47.30 Sleep apnea, unspecified; F41.9 Anxiety disorder, unspecified; M19.90 Unspecified osteoarthritis, unspecified site; Z90.49 Acquired absence of other specified parts of digestive tract; Z98.890 Other specified postprocedural states; Z88.8 Allergy status to other drugs, medicaments and biological substances; Z86.16 Personal history of COVID-19; X50.1XXA Overexertion from prolonged static or awkward postures, initial encounter; Y93.89 Activity, other specified; Y92.002 Bathroom of unspecified non-institutional (private) residence as the place of occurrence of the external cause; Y99.8 Other external cause status

== ENCOUNTER 2025-07-05 09:25 | Emergency (ER) | payer OTHER, MEDICAID ==
[~2025-07-05] VITALS: Wt 117.5 kg
[~2025-07-05 09:25] MED LIST changes: +OXYCODONE5 M1 PO
[2025-07-05] MEDS ORDERED: Tdap Vaccine 0.5 ML SYR (Adult Vaccine) IM ONE (09:55)
== END 2025-07-05 11:15 | disposition home or self-care (01) ==
LOC: ED 09:25
DX: M79.641 Pain in right hand (principal); S91.312A Laceration without foreign body, left foot, initial encounter; X58.XXXA Exposure to other specified factors, initial encounter; Y93.89 Activity, other specified; Y92.89 Other specified places as the place of occurrence of the external cause; Y99.8 Other external cause status; Z98.890 Other specified postprocedural states; Z96.651 Presence of right artificial knee joint; Z90.49 Acquired absence of other specified parts of digestive tract; Z88.8 Allergy status to other drugs, medicaments and biological substances